=== PATIENT | female | born 1945 | race Two or more races ===

== ENCOUNTER 2024-08-20 23:14 | Inpatient (IN) | payer OTHER, SELFPAY ==
[2024-08-20 19:58] VITALS: BP 137/44
[2024-08-20 20:22] VITALS: BMI 31.8
[2024-08-20 20:24] VITALS: BP 144/50
[2024-08-20 20:32] LABS: % Basophils 0.2 % (0-2); % Eosinophils 6.5 % (0-6); % Immature Granulocytes 0.2 % (0-0.5); % Lymphocytes 30.5 % (20.5-51.1); % Monocytes 7.7 % (1.7-9.3); % Neutrophils 54.9 % (42.2-75.2); Absolute Eosinophils 0.4 10^3/uL (0-0.7); Absolute Lymphocytes 1.7 10^3/uL (1.2-3.4); Absolute Monocytes 0.4 10^3/uL (0.1-0.6); Absolute Neutrophils 3.1 10^3/uL (1.4-6.5); Hematocrit 25.2 % (37.0-47.0); Hemoglobin 8.1 g/dL (12.0-16.0); Mean Corp Hgb Conc. 32.1 g/dL (33.0-37.0); Mean Corpuscular Hgb 26.6 pg (27.0-31.0); Mean Corpuscular Volume 82.6 fL (81.0-99.0); Nucleated Red Blood Cells % 0 %; Platelet Count 198 10^3/uL (130-400); Red Blood Cell Count 3.05 10^6/uL (4.20-5.40); Red Cell Dist. Width 15.1 % (11.5-14.5); White Blood Cell Count 5.7 10^3/uL (4.8-10.8)
[2024-08-20 20:53] LABS: ALT (SGPT) 22 U/L (0-35); AST (SGOT) 26 U/L (14-36); Albumin 4.2 g/dl (3.5-5.0); Alkaline Phosphatase 65 U/L (38-126); Blood Urea Nitrogen 35 mg/dl (7-17); Calcium 9.6 mg/dl (8.4-10.2); Carbon Dioxide 21 mmol/L (22-30); Chloride 105 mmol/L (98-107); Estimated Creatinine Clearance 68 ml/min; Glucose 103 mg/dl (70-99); Potassium 4.6 mmol/L (3.5-5.1); Sodium 137 mmol/L (135-145); Total Bilirubin 0.5 mg/dl (0.2-1.3); Total Protein 6.4 g/dl (6.3-8.2); eGFR > 60.00
[2024-08-20 20:57] LABS: Troponin I < 0.012 ng/ml
[2024-08-20 21:00] VITALS: BP 121/39
[2024-08-20 21:17] LABS: Magnesium 2.1 mg/dl (1.6-2.3)
--- NOTE | 2024-08-20 21:19 | ED.GENMED ---
History of Present Illness
General
Chief Complaint: Chest Pain
Time Seen by Provider: 08/20/24 20:22
History of Present Illness
History of Present Illness:
79-year-old female with history of high blood pressure, dementia, and high cholesterol presenting to the emergency department for generally feeling unwell. Patient arrives with son who lives with her. He notes that patient had a bowel movement
earlier, and he noticed blood. She has been having some diarrhea so family ember gave her some Imodium today. She is not on any blood thinners. She was then eating dinner and then claimed that she was feeling well. Patient is a limited story and
given her dementia. She denies any associated chest pain or difficulty breathing. She describes it as a dizziness. Patient arrives with a low heart rate, and son notes that she has had this in the past, however is not sure of what degree. No
additional history obtained at this time.
Past History
Past History
ED Past Medical History: Cancer (Colon cancer), GERD, HTN, Hypercholesterolemia and Other (Osteoarthritis)
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
Social History
Tobacco: Non-smoker
Alcohol: None
Personal:
Living: with family (Resides with her son)
Employment: Retired
Family History
Family History: Other (Noncontributory)
Phy Exam
Physical Exam
Physical Exam:
General: Well-appearing, no clinical signs of dehydration, nontoxic and in no acute distress
HEENT: protecting airway
Neck: appears supple
CV: Bradycardic, regular rhythm, no evidence of cyanosis
Resp: No accessory muscle use, no increased work of breathing, lungs clear to auscultation bilaterally
Abd: Soft and non-distended, no tenderness to palpation
Extremities: No deformities, no swelling, no erythema
Neuro: alert, no focal neurologic deficit
: Hemoccult positive
Rectal: deferred
Psych: Normal affect
Skin: Intact
Scores
Heart Score for Chest Pain Patients
STEMI patient?: Not applicable
Course
Orders/Labs/Results
Orders:
Orders
08/20/24 19:55
Electrocardiogram (*1) Urgent
Reason for Study: Chest Pain
EKG- Treatment ONCE
08/20/24 20:26
Complete Blood Count/With Diff Urgent
Comprehensive Metabolic Panel Urgent
Iron Urgent
Comment: ADD ON
Magnesium Urgent
Comment: ADD ON
Troponin I Urgent
08/20/24 20:27
Electrocardiogram (*1) Urgent
Reason for Study: Chest Pain
EKG- Treatment ONCE
08/20/24 20:59
Add On- LAB Urgent
Tests Added?: magnesium level
08/20/24 21:20
Type And Crossmatch [Type+Screen] Urgent
08/20/24 21:54
Stool Culture Routine
POLLY Source: Feces/Stool
Specimen Description:
Stool For WBC Routine
POLLY Source: Feces/Stool
Specimen Description:
08/20/24 22:53
CARDIOLOGY CONSULT Routine
Consulting Provider: Gordo Soriano
Was physician already notified: Yes
Reason for consult: Mobitz type II
08/20/24 22:55
Consult Notification Routine
Specialty to Notify: Gastroenterology
GASTROINTESTINAL CONSULT Routine
Consulting Provider: Reji Zeng
Was physician already notified: No
Reason for consult: gi bleed hx colon ca r colectomy 2019
08/20/24 22:56
Admit/Transfer Patient As Directed
Co-Sign Provider:
Level of Care: Inpatient admission
Assign to:: Telemetry
Physician / Group: len diaz
Diagnosis: Mobitz type II, lower GI bleed, diarrhea
Reason for Telemetry: Arrhythmia
Date to Stop Telemetry: 08/23/24
Time to Stop Telemetry: 11:00
Reason for Hospitalization: Mobitz type II, lower GI bleed, diarrhea
Expected length of stay greater than two midnights?: Yes
ELOS- Estimated Length of Stay in days: 4
I certify the patient meets the requirements for IP care: Yes
08/20/24 22:57
Code Status As Directed
Resuscitation Status: Full Code
08/20/24 22:59
PRN Pain Medication Management As Directed
May give lesser potent ordered pain med per pt: Yes
preference::
Protocol:: Medication orders for pain may be administered in a
manner that supports deferring to patient preference
when the pt is:
- Requesting an ordered lesser potent pain medication.
Least to most potent pain medications are defined
as: acetaminophen < NSAID < tramadol < opioids
(morphine, oxycodone, hydromorphone).
- Requesting a lesser dose of the same medication IF
ORDERED.
- Requesting a less intrusive route of administration
if both routes are prescribed by the provider (PO <
IV).
08/20/24 23:00
Flush (0.9% Sodium Chloride) [Flush (Nss)] See Dose Instructions IV PER PROTOCOL
08/21/24 00:52
Acetaminophen [Tylenol] 650 mg PO Q4HPRN PRN
Lidocaine [Lidocaine 4% Patch] 1 patch TOPICAL DAILY PRN
Apply Lidocaine patch(s) to:: bilat knees
Trazodone [Desyrel] 50 mg PO HS PRN
08/21/24 00:52
Activity As Directed
Activity Level: With Assistance
Intake/ Output As Directed
Frequency: Per unit guidelines
Pneumatic Compression Sleeves As Directed
Type: Knee high
Vital Signs As Directed
Frequency: Per unit guidelines
Weight As Directed
Frequency: Daily
Ot Eval And Treat Routine
Pt Eval And Treat Routine
Activity Level: With Assistance
DX Deep Vein Thrombosis Video Routine
08/21/24 04:00
H&H Q8H
08/21/24 06:00
B12 [Vitamin B12] IN AM
Cardiovascular Evaluation IN AM
Complete Blood Count/With Diff IN AM
Comprehensive Metabolic Panel IN AM
Ferritin IN AM
Folate IN AM
TIBC [Total Iron Binding] IN AM
TSH Reflex To Free T4 IN AM
08/21/24 08:00
Lisinopril [Zestril] 20 mg PO DAILY
Mirabegron Extended Release [Myrbetriq Extended Release] 25 mg PO DAILY
Omeprazole Suspension [Prilosec Baby Oral Suspension] 20 mg PO DAILY
08/21/24 12:00
H&H Q8H
08/21/24 Dinner
Clear Liquid
08/21/24 20:00
H&H Q8H
08/21/24 22:00
Atorvastatin [Lipitor] 10 mg PO HS
08/22/24 04:00
H&H Q8H
08/22/24 06:00
Complete Blood Count/With Diff IN AM
Comprehensive Metabolic Panel IN AM
08/23/24 06:00
Complete Blood Count/With Diff IN AM
Comprehensive Metabolic Panel IN AM
08/23/24 11:00
DC Protocol for Telemetry ONCE
08/24/24 06:00
Complete Blood Count/With Diff IN AM
Comprehensive Metabolic Panel IN AM
Abnormal Lab Results
08/20/24
20:26
RBC 3.05 L 10^6/uL
(4.20-5.40)
Hgb 8.1 L g/dL
(12.0-16.0)
Hct 25.2 L %
(37.0-47.0)
MCH 26.6 L pg
(27.0-31.0)
MCHC 32.1 L g/dL
(33.0-37.0)
RDW 15.1 H %
(11.5-14.5)
MPV 11.0 H fL
(7.4-10.4)
Eosinophils % 6.5 H %
(0-6)
Carbon Dioxide 21 L mmol/L
(22-30)
BUN 35 H mg/dl
(7-17)
Glucose 103 H mg/dl
(70-99)
08/20/24 20:26
08/20/24 20:26
Vital Signs
Initial and Last Documented VS:
Initial Vital Signs
Temp Pulse Resp BP Pulse Ox
98.7 F 37 18 137/44 98
08/20/24 19:58 08/20/24 19:58 08/20/24 19:58 08/20/24 19:58 08/20/24 19:58
Last Documented Vital Signs
Temp Pulse Resp BP Pulse Ox
98.2 F 35 11 109/35 97
08/21/24 01:03 08/21/24 00:00 08/21/24 00:00 08/21/24 00:00 08/21/24 00:00
MDM/Problems Addressed
MDM/Problems Addressed:
79-year-old female with history of dementia, hypertension, hyperlipidemia presenting to the emergency department for dizziness and generally feeling unwell. Vital signs on arrival significant for profound bradycardia.
On exam, patient is resting comfortably, no acute distress. Blood pressure within normal limits. EKG obtained on arrival, which does show bradycardia, concern for heart block second-degree versus third-degree. Suspect that this could be
contributing to patient's symptoms. Plan for laboratory analysis, will discuss cardiology. Rectal exam also performed with report that patient was having blood per stool. Patient is Hemoccult positive. Will send type and screen in the setting of
potential GI bleed requiring transfusion.
21:30 - Patient's hemoglobin is low at 8.1, and blood pressure stable without immediate need for transfusion. Will consent in the event that hemoglobin is worsening. Did discuss with cardiology regarding patient's rhythm, expressed concern for
Mobitz 2, may need a pacemaker. On review of patient's medications, do not see any beta-blockers or calcium channel blockers. Patient is on lisinopril. Plan for admission for continued cardiac monitoring and cardiac consultation.
*EKG
Interpreted by ED Provider?: Yes
EKG Intrepretation Date: 08/20/24
EKG Intrepretation Time: 21:30
Interpretation: abnormal
Comparison EKG: changes noted (01/21/19)
Heart Rate: 33
Rate: bradycardiac
Rhythm: sinus
[place]: left axis deviation
Interval: second degree mobitz II
QRS Pattern: right bundle branch block
Ischemia: no ischemia
*Critical Care Note
Total Time (30-74mins, 75-104mins- exclusive of procedures): Not Applicable
ED Attending Note
-
Portions of this chart may have been created with voice recognition software.� Occasional wrong word or��sound alike� substitutions may have occurred due to the inherent limitations of voice recognition software.
Discharge Plan
Departure
Patient Disposition: Admit
Date of Disposition: 08/20/24
Time of Disposition: 21:35
Presentation/result/management discussed w/ accepting MD/DO: Hospitalist
Condition: Fair
Discharge Problem:
Bradycardia, GI bleed, AV block, Mobitz II
Interventions
Interventions:
*Risk Screen - Suicide Last Done: 08/20/24 19:58
*General Assessment Last Done: 08/20/24 19:58
*Neglect/Abuse Screening Last Done: 08/20/24 19:58
*ED COVID-19 Vaccine History Last Done: 08/20/24 20:22
*Nursing Disposition Last Done: 08/21/24 00:43
ED- Cardiac Assessment Last Done: 08/20/24 20:22
Discharge Date and Time
Discharge Date/Time: 08/21/24 00:44
--- NOTE | 2024-08-20 21:49 | HPS.HSE ---
Family Physician
-
Family Physician: Nieves Schilling
Chief Complaint
-
Diarrhea pudding-like with blood in toilet, then dizziness
History of Present Illness
79-year-old female complaining of feeling unwell. She and her son Garrison whom she lives with states she had watery pudding-like stool with some blood in the toilet x 2 episodes he then gave her 2 tablets of Imodium she then had additional episode of
watery pudding-like stool with blood so he gave an additional tablet of Imodium earlier today. She had heme positive blood in the ER with hemoglobin of 8.1. While eating dinner she was complaining she was not feeling well describing it as a
dizziness. Her history is limited due to history of dementia, however she does recall feeling dizzy earlier today currently while laying in bed she does not feel dizzy she denies headache, blurred vision, fever, chills, chest pain, palpitations,
cough, shortness of breath, abdominal pain, nausea, vomiting, urinary symptoms. She is oriented to first and last name, son and daughter but not her pcnaonxk-hg-kud or son-in-law at bedside she does not know the year or the president. On arrival
to the ER she was noted to have a low heart rate. EKG was evaluated by cardiology Dr. NICOLE Soriano appears to be Mobitz type II was recommended to monitor patient until he but does not need temporary pacemaker at current time.
Patient has past medical history of colon cancer with colon resection for cecal carcinoma, GERD, HTN, HLD, OA, dementia.
Medical History
Past Medical History
Past Medical History: Reports Other
Additional Past Medical History:
Dementia-She is oriented to first and last name, son and daughter but not her [id number]-rea or son-in-law at bedside she does not know the year or the president
colon cancer with colon resection for cecal carcinoma
GERD
Hernia
HTN
HLD
OA
Renal calculi
Urinary incontinence
Glaucoma
Past Surgical History: Reports Other
Additional Past Surgical History:
Appendectomy
Colon resection for cecal carcinoma
Cholecystectomy
Hysterectomy
Bladder surgery 1998
Transvaginal enterocele repair and open mesh sacrocolpopexy 2002
Bilateral laser eye treatment
Bilateral cataract extraction
Blepharoplasty
Cardiac cath
Hernia repairs times 09/09/2021
Social History
Tobacco: Non-smoker
Alcohol: None
Drug: None
Personal: Single
Living: With Family (Son Garrison)
Employment: Retired
Family History
Family History: Unable to Obtain
Allergies / Home Medications
Allergies reflects when Allergies were last updated in [employer].
Home Medications with original date entered in [employer]
Allergy/Medication List:
Allergies
Allergy/AdvReac Type Severity Reaction Status Date / Time
No Known Allergies Allergy Verified 07/23/22 18:52
Home Medications
lisinopril 20 mg tablet 20 mg PO DAILY 08/25/18
simvastatin 20 mg tablet 20 mg PO HS 08/25/18
Vitamin D3 1 cap PO DAILY 01/17/22
vitamin [id number] acid 1 tab PO DAILY 01/17/22
acetaminophen 325 mg tablet 650 mg (2 x 325 mg) PO Q4HPRN PRN mild pain #1 tab 01/24/22
ibuprofen 200 mg tablet 400 - 600 mg (2 - 3 x 200 mg) PO Q6HPRN PRN moderate pain #1 tab 01/24/22
diclofenac sodium 1 % topical gel 2 g topical HS PRN pain 08/20/24
lidocaine 4 % topical patch 1 patch topical DAILY PRN pain 08/20/24
mirabegron 25 mg tablet,extended release 24 hr (Myrbetriq) 25 mg PO DAILY 08/20/24
omeprazole 20 mg capsule,delayed release 20 mg PO DAILY 08/20/24
trazodone 50 mg tablet 50 mg PO HS PRN insomia 08/20/24
Review of Systems
-
History Source: Patient and Family (Son Garrison, daughter Brie, [id number] Sarah and son-in-law Samm at bedside)
A 12 point ROS was completed and negative except as noted: Yes
Constitutional: Denies Fever, Fatigue or Chills
EENT: Denies Sore Throat or Runny Nose
Respiratory: Denies Cough or Trouble Breathing
Cardiac: Denies Chest Pain, Diaphoresis, Palpitations or Syncope
Abdomen/GI: Reports Diarrhea (Pudding-like with some blood in toilet red in color); Denies Abdominal Pain, Nausea or Vomiting
: Denies Dysuria, Frequency, Flank Pain, Incontinence, Difficulty Voiding or Urgency
Musculoskeletal: Reports Edema (+2 bilateral lower extremity); Denies Joint Pain
Skin: Denies Itching or Rash
Neurological: Denies Dizzy, Headache or Weakness
Endocrine: Reports No Symptoms
Hematologic/Lymphatic: Reports No Symptoms
Psych: Reports Calm
Physical Exam
Vital Signs
Vital Signs
Temp Pulse Resp BP Pulse Ox
98.7 F 37 17 121/39 98
08/20/24 19:58 08/20/24 21:45 08/20/24 21:45 08/20/24 21:00 08/20/24 21:00
Physical Exam
General: Comfortable and Conversant; No Fever or Chills
HEENT: NormoCephalic, Moist mucous membranes, PERRLA, Fishtail Conjunctivae and No Ptosis
Respiratory: Clear; No Wheezes, Rales or Rhonchi
Cardiac: S1/S2, Bradycardia (Heart rate 35 bpm) and Peripheral Edema (+2 bilateral legs); No Murmur, Rub or Gallop
GI: Soft, Non Tender, Non Distended and Normal Bowel Sounds
Rectal: Deferred by Provider
Genito-urinary: Deferred by me
Musculoskeletal: No Clubbing, No Cyanosis, Edema, Left Lower Extremity (+2 bilateral lower leg) and Edema, Right Lower Extremity (+2 bilateral lower leg); No Edema, Left Upper Extremity or Edema, Right Upper Extremity
Skin: Warm and Dry; No Rash
Neuro: Awake, Alert, Oriented (To name, son Garrison, daughter Sarah but not valvbxwq-[id number] and son-in-law at bedside year or president), No Motor Deficits (While in bed), Cranial Nerves Intact and No Sensory Deficits; No Slurred Speech, Facial Droop or
Tremors
Psych: Calm
Laboratory Results
-
08/20/24 20:26
08/20/24 20:
Laboratory Results
Total Bilirubin 0.5 mg/dl (0.2-1.3) 08/20/24 20:
AST 26 U/L (14-36) 08/20/24 20:
ALT 22 U/L (0-35) 08/20/24 20:
Alkaline Phosphatase 65 U/L (38-126) 08/20/24 20:
Troponin I < 0.012 ng/ml 08/20/24 20:26
Impression/Plan
-
Impression/plan:
Admit to telemetry
#Lower GI bleed
#History of colon cancer with colon resection for cecal carcinoma�laparoscopic right colectomy 01/20/2019
Heme positive stool in ER
Hgb 8.1 <11.7 on 01/09/2022, MCV 82.6
Type and screen, blood consent obtained by ER
-Check iron panel, B12, folate
-Monitor H&H every 8 hours
-Consult GI
-Clear liquid diet
-Hold ibuprofen 400 to 600 mg every 6 hours as needed
#Diarrhea earlier today
-Patient was given dose of Imodium by family today 08/20/2024
-If diarrhea occurs would check stool for WBC,
#Sarabjititz type II
-Consult [facility] cardiology�Dr. NICOLE Soriano aware
-Monitor on telemetry
-Check TSH with free T4 reflex
#Dementia
-Fall precautions
#GERD
-IV Protonix [address] of 20 mg omeprazole daily
-
#HTN
ccnt lisinopril 20 mg daily
#HLD
-Hold simvastatin 20 mg daily
#Overactive bladder
Hold Myrbetriq 25 mg daily
#Insomnia
Hold trazodone 50 mg at bedtime as needed
#OA
-Hold diclofenac sodium 2 g topical at bedtime as needed pain
#Chronic ambulatory dysfunction uses walker at baseline
-Consult PT
Other PMH:
Renal calculi
Urinary incontinence
Glaucoma
DVT prophylaxis
SCDs given GI bleed
Full code per patient with son Garrison, daughter Sarah, sbeovakv-qe-hcy Brie and son-in-law Samm at bedside
--- NOTE | 2024-08-20 22:33 | W.PN.UPDATE ---
Addendum entered and electronically signed by Geo Coe MD 08/20/24 22:47:
No amanment
Original Note:
Update Note
Progress Note Update
I could not get any information from the patient has dementia
Information gathered by chart review and speaking with the ER staff.
This note serves as an addendum to the H&P by assistant golf course superintendent ZEE
Jovita GUANAKITO
HPI
79F HX Dementia, s/p colon resection for cecal carcinoma, GERD, HTN, HLD, OA seen at ER:
- vague c/o feeling unwell
- noted blood in her bowel movement earlier- confirmd by HoB POS stool at ER
- Current Hgb 8.1
- report diarrhea so a family member gave her Imodium today
- While eating dinner she was complaining she was not feeling well describing it as a dizziness.
- On arrival to the ER SB 30s to 40s
EKG was evaluated by cardiology Dr. NICOLE Soriano appears to be Mobitz type II was recommended to monitor patient , he does not indicate not need temporary pacemaker at current time.
Reviewed VS: BP 120/40 HR 30s - 40s
PE
Gen: nontoxic and in no acute distress
HEENT:anicteric
Neck: supple
Lungs: CTA
Cor: RRR , significant bradycardia
Abdomen: Soft and non-distended, no tenderness to palpatio
Rectal per ER: HoB POS
GRANTS ASSISTANT: AAO3
MS: no edema
Psych: Normal affect
Data
Hgb 8.1
CO2 21
BUN 35
Cr 0.7
eGFR > 60
BG > 60
TPNI < 0.012
EKG
MARKED SINUS BRADYCARDIA
RIGHT BUNDLE BRANCH BLOCK
ABNORMAL ECG
WHEN COMPARED WITH ECG OF 20-AUG-2024 20:10,
NO SIGNIFICANT CHANGE WAS FOUND
ASSESSMENT & PLAN
HoB POS stool
Acute LGIB associated
Associated with ACBLA ( Hgb 8.1 now. 11.7 on 01/09/2022, MCV 82.6)
HX colon resection for cecal carcinoma
- Type and screen, blood consent obtained by ER
- Check iron panel, B12, folate
- Monitor H&H every 8 hours
- Hold ibuprofen
- GI consult
Significant sinus bradycardia: HX SB but currently slower HR
Mobitz type II ?
- TLM monitor
- check TSH
- [facility] consult ( Dr. NICOLE Soriano aware)
Diarrhea earlier today
-Patient was given dose of Imodium by family today 08/20/2024
-If diarrhea occurs would check stool for WBC,
HX Dementia
-Fall precautions
GERD
-IV Protonix [address] of 20 mg omeprazole daily
-
Essential HTN
- lisinopril
HLD
- on simvastatin
Overactive bladder
- Myrbetriq 25 mg daily
Insomnia
- on trazodone 50 mg at bedtime as needed
DVT prophylaxis: SCDs
Full code
IP TLM
[2024-08-20 22:35] VITALS: BP 106/37
[2024-08-20 23:00] VITALS: BP 100/45
[2024-08-20 23:30] VITALS: BP 107/37
[2024-08-21] VITALS (22 sets, daily range): BP systolic 77–162; BP diastolic 35–149; BMI 30.8; BMI 30.9
[2024-08-21 00:08] LABS: Iron 42 ug/dl (37-170)
--- NOTE | 2024-08-21 02:40 | PTCARENOTE ---
Pt received from ED via stretcher. With assist of 3 pt transferred to bed. AAOx1. Very repetitive in speech. No recall. EYAK. Confused, forgetful. Mobitz Type II/BBB on CM rate 30's. ED pads remaine on pt. Pt asymptomatic. Denies pain or discomfort.
Denies dizziness or lightheadedness. Afebrile. POX RA 96%. Incontinent x 1 moderate bloody BM. Received CHG bath and attends changed. Purewick placed. Knee SCD's not placed d/t pt being high falls risk. Multiple attempts oob. Unable to reorient pt.
Nursing 1:[address] Rest of assessment as documented. Call rod remain within reach. Will continue to monitor.
[2024-08-21 04:55] LABS: % Basophils 0.2 % (0-2); % Immature Granulocytes 0.5 % (0-0.5); % Lymphocytes 35.6 % (20.5-51.1); % Monocytes 7.5 % (1.7-9.3); % Neutrophils 49.2 % (42.2-75.2); Absolute Eosinophils 0.3 10^3/uL (0-0.7); Absolute Lymphocytes 1.5 10^3/uL (1.2-3.4); Absolute Monocytes 0.3 10^3/uL (0.1-0.6); Absolute Neutrophils 2.1 10^3/uL (1.4-6.5); Hematocrit 21.3 % (37.0-47.0); Mean Corp Hgb Conc. 32.9 g/dL (33.0-37.0); Mean Corpuscular Hgb 26.9 pg (27.0-31.0); Mean Corpuscular Volume 81.9 fL (81.0-99.0); Nucleated Red Blood Cells % 0 %; Platelet Count 158 10^3/uL (130-400); Red Cell Dist. Width 15.2 % (11.5-14.5); White Blood Cell Count 4.3 10^3/uL (4.8-10.8)
[2024-08-21 05:07] LABS: ALT (SGPT) 18 U/L (0-35); AST (SGOT) 20 U/L (14-36); Alkaline Phosphatase 55 U/L (38-126); Blood Urea Nitrogen 29 mg/dl (7-17); Calcium 8.9 mg/dl (8.4-10.2); Carbon Dioxide 20 mmol/L (22-30); Chloride 111 mmol/L (98-107); Estimated Creatinine Clearance 79 ml/min; Glucose 97 mg/dl (70-99); HDL Cholesterol 45 mg/dl; LDL Cholesterol, Calculated 48 mg/dl; Potassium 4.1 mmol/L (3.5-5.1); Sodium 138 mmol/L (135-145); Total Bilirubin 0.3 mg/dl (0.2-1.3); Total Cholesterol 110 mg/dl (50-199); Total Protein 5.1 g/dl (6.3-8.2); Triglyceride 88 mg/dl (10-149); Very Low Density Lipoprotein 17 mg/dl (0-30); eGFR > 60.00
--- NOTE | 2024-08-21 05:19 | PTCARENOTE ---
Pt without UO for shift. Bladder scanned for 527mls. Pt then urinated 400mls using purewick.
[2024-08-21 05:21] LABS: Total Iron Binding Capacity 374 ug/dl (265-497)
[2024-08-21 05:40] LABS: Ferritin 7.4 ng/ml (11.1-264.0)
[2024-08-21 06:11] LABS: Folate > 20.0 ng/ml (2.76-20); Vitamin B12 > 1000 pg/ml (239-931)
[2024-08-21] MEDS: PROTONIX 40 MG PO (07:21)
[2024-08-21] MEDS: ZESTRIL 20 MG PO (07:21)
[2024-08-21] MEDS: MYRBETRIQ EXTENDED RELEASE 25 MG PO (07:21)
--- NOTE | 2024-08-21 07:34 | CON.CAR ---
Consultation
Consultation Request
Date/Time Consultation Requested: 05/20/2025 at 2100
Date/Time Consultation Performed: 05/20/2025 at 730
Requesting Provider: Dr. Coe
Performing Provider: Gordo Soriano MD
Reason for Consultation: 2:1 AV Block with RBBB
Medical History
-
Chief Complaint: Dizziness and malaise
History of Present Illness:
79-year-old woman with cognitive impairment, longstanding right bundle branch block, prior right colectomy for cecal carcinoma who is feeling unwell, had loose bowel movement with blood and because of malaise and dizziness presented to ER where
hemoglobin was 8.1 and EKG showed sinus bradycardia with 2-1 heart block and underlying right bundle branch block. Currently, she offers no complaints, is very pleasant and conversant, though has poor memory. Son and [id number] at bedside,
report that she functions well at home, enjoys life, etc. She had never had dizziness previously.
Past Medical History
Past Medical History: Arrhythmias (Right bundle branch block), GERD, HTN, Hypercholesterolemia, Psychiatric (Alzheimer's dementia) and Other (Glaucoma, osteoarthritis, renal calculi)
Past Surgical History: Appendectomy, Bowel Resection (Right colectomy for cecal carcinoma), Cholecystectomy, Gynecological (Hysterectomy, transvaginal enterocele repair with open mesh sacrocolpopexy) and Urological
Social History
Tobacco: Non-Smoker
Alcohol: None
Drug: None
Personal:
Living: With Family (Lives with son Garrison)
Employment: Retired
Family History
Family History: Reviewed & Not Pertinent
Allergies / Home Medications
Allergy/AdvReac Type Severity Reaction Status Date / Time
No Known Allergies Allergy Verified 07/23/22 18:52
�Medication �Instructions �Recorded �Confirmed �Type
lisinopril 20 mg tablet 20 mg PO DAILY 08/25/18 08/20/24 History
simvastatin 20 mg tablet 20 mg PO HS 08/25/18 08/20/24 History
Vitamin D3 1 cap PO DAILY 01/17/22 08/20/24 History
vitamin [id number] acid 1 tab PO DAILY 01/17/22 08/20/24 History
acetaminophen 325 mg tablet 650 mg (2 x 325 mg) PO Q4HPRN PRN 01/24/22 08/20/24 Rx
mild pain #1 tab
ibuprofen 200 mg tablet 400 - 600 mg (2 - 3 x 200 mg) PO 01/24/22 08/20/24 Rx
Q6HPRN PRN moderate pain #1 tab
diclofenac sodium 1 % topical gel 2 g topical HS PRN pain 08/20/24 08/20/24 History
lidocaine 4 % topical patch 1 patch topical DAILY PRN pain 08/20/24 08/20/24 History
mirabegron 25 mg tablet,extended 25 mg PO DAILY 08/20/24 08/20/24 History
release 24 hr (Myrbetriq)
omeprazole 20 mg capsule,delayed 20 mg PO DAILY 08/20/24 08/20/24 History
release
trazodone 50 mg tablet 50 mg PO HS PRN insomia 08/20/24 08/20/24 History
Review of Systems
-
Unable to obtain full review of systems at this time due to: Dementia
All other systems: Negative unless noted (Review of systems performed through son, patient has little if any memory, overall she feels well and never has complaints )
Constitutional: No Symptoms
EENT: No Symptoms
Respiratory: No Symptoms
Cardiac: No Symptoms
Abdomen/GI: No Symptoms
: No Symptoms
Musculoskeletal: No Symptoms
Skin: No Symptoms
Neurological: No Symptoms
Physical Exam
Vital Signs
Temp Pulse Resp BP Pulse Ox
36.7 C 34 17 130/48 96
08/21/24 07:04 08/21/24 07:21 08/21/24 04:15 08/21/24 07:21 08/21/24 04:15
Lab Results
08/21/24 03:50
Troponin I < 0.012 ng/ml 08/20/24 20:26
Physical Exam
General: No Apparent Distress (Pleasant, very poor memory)
HEENT: Normocephalic
Respiratory: Clear
Cardiac: Murmur (2/6 systolic murmur at apex)
GI: Soft and Normal Bowel Sounds
Musculoskeletal: Edema (Trace to 1+)
Skin: Warm and Dry
Neuro: Awake and Alert
Psych: Calm
Impression / Plan
-
Impression:
Probable Mobitz 2 heart block with underlying right bundle branch block and left axis deviation
GI bleed/hematochezia with blood loss anemia and iron deficiency anemia
History of cecal carcinoma status post right colectomy 2018
Longstanding right bundle branch block
Hypertension
Dementia
Hyperlipidemia
History of seizure disorder
Remote subdural hygroma
Glaucoma
GERD
Heart murmur
Cardiac catheterization 2004 at [facility]: EF 51%, 40% ostial LAD, otherwise no obstructive CAD
Lexiscan sestamibi study July 2018: Normal perfusion, EF greater than 75%
Plan:
She presents with 2-1 heart block and right bundle branch block. Statistically, this is most likely Mobitz 2, though as she has improved, we see that she has Mobitz 1 as well. Given her right bundle, it is likely that conduction through her bundle
of His is prolonged.
She still has substantial second-degree heart block and with symptoms of dizziness I am in favor of pacemaker implantation. Suspect that heart block is a reversible despite the physiologic stress of her bleeding.
We will check an echocardiogram. Suspect she has some mitral regurgitation.
Management is complicated by GI bleeding. Ideally we would like to know her underlying GI pathology before committing to pacemaker implant, but her bradycardia makes colonoscopy impractical. GI has ordered a CT scan of the abdomen and pelvis and
this may be of some help in risk stratifying.
Transfuse as per primary team.
At this point we will tentatively plan on pacemaker implantation tomorrow and reassess in the morning. Discussed with patient, electrophysiology, son and otcbwenf-af-jkn as well as nursing.
Data Reviewed
-
EKG: Tracing Personally Visualized and interpreted (Sinus rhythm/sinus arrhythmia with 2:1 AV block, and right bundle branch block)
Medical Tests (Nuc Med, Echo etc): Report Reviewed by me
Labs: Labs Reviewed by me (Hemoglobin 7.0, BUN and creatinine 29 and 0.6, troponin undetectable, LDL 48, TSH normal)
Old Records: Reviewed
[2024-08-21] MEDS: OMNIPAQUE 50 ML PO (10:34)
--- NOTE | 2024-08-21 10:45 | CON.GI ---
Addendum entered and electronically signed by Reji Zeng MD 08/21/24 12:34:
error consult done at noon
Original Note:
Consultation
-
Date/Time Consultation Requested: 08/20/2024, 11pm
Date/Time Consultation Performed: 08/21/2024, 1:30pm
Requesting Provider: Dr. Coe
Performing Provider: Dr. Zeng
Reason for Consultation: rectal bleeding
Medical History
Chief Complaint / HPI
Chief Complaint: dizzy, malaise
History of Present Illness:
79-year-old female past medical history of dementia, right bundle branch block, right hemicolectomy for cecal cancer presenting with loose bowel movement with blood and malaise and dizziness found to have a hemoglobin of 8.1 and EKG with sinus
bradycardia 2-1 block and underlying bundle branch block. Repeat Hb this am is 7 and she is getting 1UPRBC.
Reviewing records, it looks that she right hemicolectomy with Dr. Calix in January 2019. She had her index colonoscopy with Dr. Garza May 2018 with proximal right colon tumor.
On discussion with patient and son and hiiyznmc-[id number] at bedside, patient did have a repeat colonoscopy after this colon cancer around 5 years ago which was her last colonoscopy.
On she had an episode of diarrhea and they gave her Imodium. Thursday she had some brown stool mixed with blood. 2 episodes of this. These bowel movements are loose. No sick contacts, antibiotics, travel. No abdominal pain, nausea,
vomiting. She did lose 10 pounds which was intentional. On review of systems, she does states she was lightheaded but no shortness of breath. She had an episode of chest pain with eating and describes she had some dysphagia. This is the second
time this has happened to her but typically she does not have dysphagia.
Past Medical History
Past Medical History: Arrhythmias (right BBB), GERD, HTN, Hypercholesterolemia and Other (Alzheimer's, OA, renal calculi)
Past Surgical History: Appendectomy, Bowel Resection (right macario for cecal Ca), Cholecystectomy, Gynecological (Hysterectomy, transvaginal enterocele repair with open mesh sacrocolpopexy), Urological and Other (hernia repair, cataract/eye surgery)
Social History
Tobacco: Non-Smoker
Alcohol: None
Drug: None
Family History
Family History: Reviewed & Not Pertinent
Allergies / Home Medications
Allergy/AdvReac Type Severity Reaction Status Date / Time
No Known Allergies Allergy Verified 07/23/22 18:52
�Medication �Instructions �Recorded
lisinopril 20 mg tablet 20 mg PO DAILY 08/25/18
simvastatin 20 mg tablet 20 mg PO HS 08/25/18
Vitamin D3 1 cap PO DAILY 01/17/22
vitamin [id number] acid 1 tab PO DAILY 01/17/22
acetaminophen 325 mg tablet 650 mg (2 x 325 mg) PO Q4HPRN PRN 01/24/22
mild pain #1 tab
ibuprofen 200 mg tablet 400 - 600 mg (2 - 3 x 200 mg) PO 01/24/22
Q6HPRN PRN moderate pain #1 tab
diclofenac sodium 1 % topical gel 2 g topical HS PRN pain 08/20/24
lidocaine 4 % topical patch 1 patch topical DAILY PRN pain 08/20/24
mirabegron 25 mg tablet,extended 25 mg PO DAILY 08/20/24
release 24 hr (Myrbetriq)
omeprazole 20 mg capsule,delayed 20 mg PO DAILY 08/20/24
release
trazodone 50 mg tablet 50 mg PO HS PRN insomia 08/20/24
Review of Systems
-
Unable to obtain full review of systems at this time due to: Dementia
Vital Signs
Temp Pulse Resp BP Pulse Ox
97.5 F 34 15 80/61 96
08/21/24 10:36 08/21/24 10:36 08/21/24 10:36 08/21/24 10:36 08/21/24 04:15
Physical Exam
Exam
General: Well Developed
HEENT: Normocephalic
Respiratory: Clear
Cardiac: S1/S2
GI: Non Tender and Non Distended
Musculoskeletal: No Clubbing
Skin: Warm
Neuro: Awake
Psych: Calm
Results
WBC 4.3 10^3/uL (4.8-10.8) L 08/21/24 03:50
Hgb 7.0 g/dL (12.0-16.0) L 08/21/24 03:50
Hgb Cancelled 08/21/24 03:50
Hct 21.3 % (37.0-47.0) L 08/21/24 03:50
Hct Cancelled 08/21/24 03:50
MCV 81.9 fL (81.0-99.0) 08/21/24 03:50
Plt Count 158 10^3/uL (130-400) D 08/21/24 03:50
Absolute Neuts (auto) 2.1 10^3/uL (1.4-6.5) 08/21/24 03:50
Sodium 138 mmol/L (135-145) 08/21/24 03:50
Potassium 4.1 mmol/L (3.5-5.1) 08/21/24 03:50
Chloride 111 mmol/L (98-107) H 08/21/24 03:50
Carbon Dioxide 20 mmol/L (22-30) L 08/21/24 03:50
BUN 29 mg/dl (7-17) H 08/21/24 03:50
Creatinine 0.6 mg/dL (0.6-1.0) 08/21/24 03:50
Calcium 8.9 mg/dl (8.4-10.2) 08/21/24 03:50
Total Bilirubin 0.3 mg/dl (0.2-1.3) 08/21/24 03:50
AST 20 U/L (14-36) 08/21/24 03:50
ALT 18 U/L (0-35) 08/21/24 03:50
Alkaline Phosphatase 55 U/L (38-126) 08/21/24 03:50
Diagnostic Image Results:
Prior GI Procedures:
EGD:
Colonoscopy:
Assessment / Plan
-
79-year-old female presenting with dizziness, malaise, rectal bleeding with anemia requiring blood transfusion with past medical history of colon cancer found to have sinus bradycardia with 2-1 block and underlying bundle karlos block. Also 2
episodes of dysphagia. I discussed with highway research engineer. Likely best to pursue pacemaker first and then colonoscopy subsequently. However, we will get a CT scan prior to pacemaker as discussion with Dr. Soriano this would change the plan for the
pacemaker. She can have a regular diet today as the colonoscopy likely will be soonest done on Thursday I will need to discuss with EP tomorrow about timing.
I discussed with the bmbhgetu-dz-pse and son about colonoscopy with the rectal bleeding and possible endoscopy given 2 episodes of dysphagia. We discussed the risk, benefits, and alternatives to upper endoscopy. The risks include bleeding,
infection, perforation, missed lesion, and cardiopulmonary complications from anesthesia. We discussed the risks of colonoscopy including bleeding, infection, missed lesion, incomplete procedure, perforation and cardiopulmonary complications from
anesthesia. They are agreeable and they would consent for the patient. Perhaps a make sense to start with the colonoscopy and only pursue endoscopy if the colonoscopy findings were negative. I reviewed our plan as above with doing the CT first
followed by pacemaker followed by endoscopic procedures and they are agreeable.
-
-
Thank you for consultation and allowing me to participate in the patient's care. Please call the honey liquefier GI physician during the after hours with any questions or concerns.
--- NOTE | 2024-08-21 11:41 | PTCARENOTE ---
Pt seen by cardiology and plan is to have Pace maker placed before colonoscopy. Discussed with provider - Pt to be transferred to IVU. 1 unit of blood given per order and Oral contrast provided for upcoming CT scan. Pt completed contrast and 1
unit pRBC's transfused. Report given to RN on IVU; Informed family of move and Pt brought to CT and will be transported to IVU from there.
--- NOTE | 2024-08-21 12:28 | W.PN.HOSP.TC ---
Today's Communication/Plan
-
[address] follow GI recs
bradycardia for PPM tomorrow (NPO p MN) follow cards recs
d/w family
Assessment / Plan
Assessment / Plan
Assessment:
Acute lower GI bleed with associated acute blood loss anemia
Hx of colon cancer s/p resection
- Hb 7.0 today; 1 unit PRBC ordered
- monitor Hb serially
- anemia indices normal
- CT pending
- continue PPI daily
- GI following
Mobitz type 2 (along with Mobitz type 1) heart block with RBBB
Symptomatic bradycardia
- TSH normal
- PPM planned for Thursday; NPO p MN
- pacer pads in place
- transfer to IVU floor
Diarrhea earlier today
- Patient was given dose of Imodium by family today 08/20/2024
- If diarrhea occurs would check stool for WBC,
HX Dementia
- Fall precautions
GERD
- continue PPI
Essential HTN
- Lisinopril
HLD
- on simvastatin
Overactive bladder
- Myrbetriq 25 mg daily
Insomnia
- on trazodone 50 mg HS
DVT ppx: SCDs
Code: Full
Anticipated Discharge: > 48 hours
Subjective/Interval History
-
Date of Service: August 21, 2024
Hb 7.0 - 1 unit ordered
HR 30s - pacer planned
denies any complaints presently
for CT today
Objective Data
-
Labs:
Laboratory Results
08/21/24 08/21/24 08/21/24
03:50 03:50 03:50
WBC 4.3 L
Hgb Cancelled 7.0 L
Hct Cancelled 21.3 L
Plt Count 158 D
Sodium 138
Potassium 4.1
Chloride 111 H
Carbon Dioxide 20 L
BUN 29 H
Creatinine 0.6
Glucose 97
Calcium 8.9
Total Bilirubin 0.3
AST 20
ALT 18
Alkaline Phosphatase 55
Vital Signs:
Vital Signs
Temp Pulse Resp BP Pulse Ox
98.2 F 32 11 124/44 97
08/21/24 11:00 08/21/24 10:56 08/21/24 10:56 08/21/24 10:56 08/21/24 10:38
I&O
08/20/24 08/21/24 08/22/24
06:59 06:59 06:59
Intake Total 0 / 0
Output Total 400 / 400
Balance -400 / -400 0 / 0
Physical Exam
-
General: No Apparent Distress
HEENT: Normocephalic and Atraumatic
Respiratory: Negative Wheezes or Rales
Cardiac: Bradycardic
GI: Soft and Nontender
Genito-urinary: No Costovertebral Tender
Neuro: AO x 3
Hematologic / Lymphatic: No Lymphadenopathy
Psych: Calm
Data Reviewed
-
Total Time Spent with Patient (in minutes): 45
Labs: Labs Reviewed by me
--- NOTE | 2024-08-21 13:28 | PTCARENOTE ---
Received pt from IMU. AOx1, disoriented to time and place. No complaints of pain or discomfort. Pacer pads in place. HR 30-40s. Son at bedside. Call rod within reach.
--- NOTE | 2024-08-21 14:50 | PTCARENOTE ---
late note due to pt care.
Pt noted to have some blood in toilet while urinating. RN made Dr Kaplan and Dr Zeng aware. Repeat H&H sent to lab. Will continue to monitor.
[2024-08-21 14:57] LABS: Hematocrit 26.5 % (37.0-47.0); Hemoglobin 8.7 g/dL (12.0-16.0)
[2024-08-21] MEDS: LIPITOR 10 MG PO (21:17)
[2024-08-21] MEDS: TYLENOL 650 MG PO (21:28)
[2024-08-21] MEDS: DESYREL 50 MG PO (21:28)
[2024-08-21 21:58] LABS: Hemoglobin 8.5 g/dL (12.0-16.0)
--- NOTE | 2024-08-21 23:20 | PTCARENOTE ---
Pt incont. of large bloody stool on the way to the bathroom- Hematest unfortunately not obtained- but visibly red- will reattempt. Pt only oriented to self. needs frequent reorientation- sitter at the bedside- pt trying to leave room to 'go home'
PRN sleep medication provided. HR in the 30s 2nd degree type 2 HR block.
[2024-08-22] VITALS (22 sets, daily range): BP systolic 78–157; BP diastolic 38–108; BMI 31.1
[2024-08-22] MEDS: TYLENOL 650 MG PO (01:33)
[2024-08-22] MEDS: NSS (PRESERVATIVE FREE) 0.25 ML IV (05:01)
[2024-08-22] MEDS: ATIVAN 0.5 MG IV (05:01)
--- NOTE | 2024-08-22 05:07 | PTCARENOTE ---
Pt increasingly confused overnight- becoming more agitated with staff- multiple staff members on the floor tried to reorient her with multiple different methods of aggression reduction and pt still was being verbally abusive and kicking towards
staff. She pulled the call rod out of the wall and would not let anyone touch it 'stating it was hers, and she purchased it'. 1:[address] MICHAELLE florentino Aware- Order for Ativan given.
[2024-08-22 06:10] LABS: % Basophils 0.5 % (0-2); % Eosinophils 6.5 % (0-6); % Immature Granulocytes 0.3 % (0-0.5); % Lymphocytes 25.6 % (20.5-51.1); % Neutrophils 59.1 % (42.2-75.2); Absolute Eosinophils 0.3 10^3/uL (0-0.7); Absolute Monocytes 0.3 10^3/uL (0.1-0.6); Absolute Neutrophils 2.3 10^3/uL (1.4-6.5); Hematocrit 22.4 % (37.0-47.0); Hemoglobin 7.4 g/dL (12.0-16.0); Mean Corpuscular Hgb 26.8 pg (27.0-31.0); Mean Corpuscular Volume 81.2 fL (81.0-99.0); Nucleated Red Blood Cells % 0 %; Platelet Count 150 10^3/uL (130-400); Red Blood Cell Count 2.76 10^6/uL (4.20-5.40); White Blood Cell Count 3.9 10^3/uL (4.8-10.8)
[2024-08-22 06:36] LABS: ALT (SGPT) 20 U/L (0-35); AST (SGOT) 27 U/L (14-36); Albumin 2.9 g/dl (3.5-5.0); Alkaline Phosphatase 49 U/L (38-126); Blood Urea Nitrogen 23 mg/dl (7-17); Calcium 8.6 mg/dl (8.4-10.2); Carbon Dioxide 20 mmol/L (22-30); Chloride 112 mmol/L (98-107); Estimated Creatinine Clearance 79 ml/min; Glucose 103 mg/dl (70-99); Potassium 3.8 mmol/L (3.5-5.1); Sodium 138 mmol/L (135-145); Total Bilirubin 0.7 mg/dl (0.2-1.3); eGFR > 60.00
[2024-08-22] MEDS: PROTONIX 40 MG PO (09:49)
[2024-08-22] MEDS: MYRBETRIQ EXTENDED RELEASE 25 MG PO (09:49)
[2024-08-22] MEDS: ZESTRIL 20 MG PO (09:51)
--- NOTE | 2024-08-22 10:59 | W.PN.GI.CBS2 ---
Addendum entered and electronically signed by Reji Zeng MD 08/22/24 12:38:
I saw and examined the patient.
The POWER PLANT INSPECTOR or PA's note was reviewed and I agree with the note.
Comment: 79-year-old female presenting with dizziness, malaise, rectal bleeding with anemia requiring blood transfusion with past medical history of colon cancer found to have sinus bradycardia with 2-1 block and underlying bundle karlos block.
Also 2 episodes of dysphagia. Having ongoing rectal bleeding. I discussed with consulting group analyst 08/21. CT unrevealing for any metastatic process.
Plan pacemaker today, colo +/- EGD pending cards optimization.
Put order for clears tomorrow in case she can have procedures done on Thu.
D/w family at bedside.
Original Note:
Today's Communication / Plan
-
s/p Ct without etiology of bleeding
s/p transfusion
add IV iron
cont PPI
for pacer today
when cleared by cards family wishes to proceed with EGD/colonoscopy
ok for low residue diet later today then clears diet in AM
Dr. Zeng reviewed risk/benefit with family and still agreeable to proceed with colonoscopy and if neg EGD prior to discharge after pacer
Assessment / Plan
-
79-year-old female with hx dementia prior cecal CA with resection in 2019 presenting with dizziness, malaise, rectal bleeding with anemia requiring blood transfusion with past medical history of colon cancer found to have sinus bradycardia with 2-1
block and underlying bundle karlos block. Also 2 episodes of dysphagia. Plab for pacer 08/22 then GI testing. Last colonoscopy about 4 year ago 1 year after Cecal CA
08/21/24 CT A.p
Small to moderate hiatal hernia.
No acute inflammatory process within the abdomen or pelvis.
1 mm right renal nonobstructing calculus.
No obstruction or wall thickening. Mild colonic fecal burden.
Previous anterior abdominal hernia has been repaired.
Multilevel compression deformities have developed since prior examination, though with a chronic appearance.
rectal bleeding
-anemia with low ferritin
-dysphagia
-heart block
-hx bowel resection for cecal CA 5 years ago
other med problems:
-dementia
-GERD
-HTN
-hypercholesterolemia
-hysterectomy, transvaginal enterocele repair with mesh
--hernia repair
PLAN:
s/p Ct without etiology of bleeding
s/p transfusion
add IV iron
cont PPI
for pacer today
when cleared by cards family wishes to proceed with EGD/colonoscopy
ok for low residue diet later today then clears diet in AM
Dr. Zeng reviewed risk/benefit with family and still agreeable to proceed with colonoscopy and if neg EGD prior to discharge after pacer
Subjective
Subjective
Date of Service: August 22, 2024
08/21 blood tinged brown stool, NPO for pacer
Objective
Data Reviewed
Laboratory Data:
Laboratory Results
08/22/24 05:55
08/22/24 05:55
Laboratory Results
Magnesium 2.1 mg/dl (1.6-2.3) 08/20/24 20:26
Total Bilirubin 0.7 mg/dl (0.2-1.3) 08/22/24 05:55
AST 27 U/L (14-36) 08/22/24 05:55
ALT 20 U/L (0-35) 08/22/24 05:55
Alkaline Phosphatase 49 U/L (38-126) 08/22/24 05:55
Vital Signs and I&O:
Vital Signs
Temp Pulse Resp BP Pulse Ox
98.6 F 32 18 120/48 97
08/22/24 04:15 08/22/24 09:51 08/22/24 08:11 08/22/24 09:51 08/22/24 08:11
I&O
08/21/24 08/22/24 08/23/24
06:59 06:59 06:59
Intake Total 250 / 250
Output Total 400 / 400
Balance -400 / -400 250 / 250
Physical Exam
Physical Exam
HEENT: Anicteric and Moist mucous membranes
Cardiology: Other (bradicardia)
Pulmonary: Clear
GI: Soft, Non Distended and Non Tender
Extremities: No Edema
Neuro: Other (confused )
--- NOTE | 2024-08-22 11:16 | W.PN.HOSP.TC ---
Today's Communication/Plan
-
Pacemaker today
IV Iron
monitor Hb
EGD/Colon when cleared by Cardiology
Assessment / Plan
Assessment / Plan
Assessment:
Acute lower GI bleed with associated acute blood loss anemia
Hx of colon cancer s/p resection
- Hb 7.4 today; has received 1 unit total PRBC this admission
- monitor Hb serially
- anemia indices normal
- start IV Iron
- continue PPI daily
- CT negative, did not reveal etiology of bleeding
- GI following; for EGD/Colonoscopy after clearance from Cards
Mobitz type 2 (along with Mobitz type 1) heart block with RBBB
Symptomatic bradycardia
- TSH normal
- PPM planned for today
Diarrhea
- Patient was given dose of Imodium by family today 08/20/2024
- If diarrhea occurs would check stool studies
HX Dementia with agitated behaviors
- Fall precautions
- prn Risperdal (avoid Benzos will worsen agitation)
- constant redirection
GERD
- continue PPI
Essential HTN
- Lisinopril
HLD
- on simvastatin
Overactive bladder
- Myrbetriq 25 mg daily
Insomnia
- on trazodone 50 mg HS
DVT ppx: SCDs due to GI bleed
Code: Full
Anticipated Discharge: > 48 hours
Subjective/Interval History
-
Date of Service: August 22, 2024
some blood tinged stool yesterday but none since
Hb 7.4
received IV ativan x 1 for agitation (hx of dementia)
NPO this AM for pacer
Objective Data
-
Labs:
Laboratory Results
08/22/24 08/22/24 08/22/24
05:55 05:55 05:55
WBC 3.9 L
Hgb 7.4 L Cancelled
Hct 22.4 L Cancelled
Plt Count 150
Sodium 138
Potassium 3.8
Chloride 112 H
Carbon Dioxide 20 L
BUN 23 H
Creatinine 0.5 L
Glucose 103 H
Calcium 8.6
Total Bilirubin 0.7
AST 27
ALT 20
Alkaline Phosphatase 49
Vital Signs:
Vital Signs
Temp Pulse Resp BP Pulse Ox
98.6 F 32 18 120/48 97
08/22/24 04:15 08/22/24 09:51 08/22/24 08:11 08/22/24 09:51 08/22/24 08:11
I&O
08/21/24 08/22/24 08/23/24
06:59 06:59 06:59
Intake Total 250 / 250
Output Total 400 / 400
Balance -400 / -400 250 / 250
Physical Exam
-
General: No Apparent Distress
HEENT: Normocephalic and Atraumatic
Respiratory: Negative Wheezes
Cardiac: Bradycardic
GI: Soft and Nontender
Neuro: Awake and Alert
Psych: Confused and Apparent Dementia
Data Reviewed
-
Total Time Spent with Patient (in minutes): 47
Labs: Labs Reviewed by me
[2024-08-22] MEDS: FERRLECIT 110 MG IV (14:27)
--- NOTE | 2024-08-22 14:38 | PTCARENOTE ---
Report given to clinical laboratory aides teacher. %2 CHG wipes done
--- NOTE | 2024-08-22 16:31 | ITS.CL.PACE ---
Quality Facilitator - Pacemaker Implant
Pacemaker Implant
Procedure Report:
PACEMAKER IMPLANT REPORT
Referring Arborist Representative: Dr Gordo Soriano
Date of Procedure: August 22, 2024
Procedure:
Implantation of dual-chamber permanent pacemaker utilizing the left bundle branch for conduction system pacing
Indication/Diagnosis:
Non-reversible symptomatic bradycardia due to second atrioventricular block.
After informed consent was obtained, 'time out' was called and confirmed, the patient was prepped and draped in a sterile fashion. Lidocaine with epi was used for local anesthesia. Central venous access was obtained via subclavian venipuncture. An
incision was made along the left chest and a pre-pectoral pocket was formed. Using a Seldinger technique and peel-away sheaths, the pacing leads were placed under fluoroscopic guidance.
Fluoroscopy was used to determine likely anatomic site for left bundle branch pacing. The Keepytronic C315 sheath was used to deliver the Medtronic 3830 Selectsecure pacing lead with the helix exposed just exposed from the sheath tip during continuous
monitoring when pacemapping the septum during gentle clockwise rotation to obtain a paced QRS morphology of a W pattern in lead V1. Once the suspected optimal site was identified, lead deployment was performed with several rapid rotations as paced
QRS morphology was intermittently monitored until a paced QRS complex in lead V1 demonstrated development of an R wave (rSr).
Unipolar pacing impedance dropped by approximately 100.
Stable VEgm injury current is present throughout final lead position including at end of case, suggesting there was no perforation through the septum into the LV cavity.
Unipolar pacing impedance is 800 Ohms
Unipolar pacing threshold is stable at 1 V @ 0.4 ms.
Final conduction system paced QRS complex duration is 109 ms
LVAT is 86 ms and peak V5 -> peak V1 timing is 42 ms
Right atrial lead was placed at the RAA using a tined lead.
Once testing (see below) showed adequate and stable function, the leads were secured using the suture sleeves. The pocket was liberally irrigated with antibiotic solution. The leads were connected to the generator header and the leads and
generator were placed within the pocket. Fluoroscopy confirmed stable lead position. The pocket was closed in the typical fashion.
Fluoroscopy was used to guide lead placement.
IMPLANTS:
Medtronic [id number], SN: [id number], Left Pectoral
RA: Medtronic 4574-45, SN: [id number], RAA
Left Bundle: Medtronic 3830 , SN:[id number], Interventricular septum at LBB
DEVICE TESTING:
Sensing: RA 2.3 mV, RV 5 mV
Capture: RA 0.5 V@0.4ms, RV 0.75 V@0.4ms (bipolar)
Ohms: RA 437, RV 608 (bipolar)
FINAL PROGRAMMING
Rd Pacing: DDDR 60-130 ppm
COMPLICATIONS:
None
CONCLUSIONS:
Successful implant of dual chamber permanent pacemaker utilizing Left Bundle Branch conduction system capture for ventricular resynchronization pacing.
RECOMMENDATIONS:
1. Post-op care (tele, CXR, IV abx)
2. In-Office wound check in 5-7 days
Copy to: Dr. Gordo Soriano
--- NOTE | 2024-08-22 17:04 | PTCARENOTE ---
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 Left arm immobilizer in place. Left chest wall pacemaker site intact with a large pressure dressing. She denies pain. Oxygen at 4 liters NC POX 97%, VSS. Family at bedside
--- NOTE | 2024-08-22 17:45 | CM ---
spoke to pt in room, he prev yessicadep, lives with his son in a 2 story home with 2 steps to enter. he has a cane and a walker he uses at home. he denies any dc planning needs. plan is for dc to e when medically stable.
[2024-08-22] MEDS: ANCEF 5 IV (22:23)
[2024-08-22] MEDS: LIPITOR 10 MG PO (22:23)
[2024-08-23] VITALS (31 sets, daily range): BP systolic 83–148; BP diastolic 42–94; BMI 30.3
[2024-08-23 04:37] LABS: % Basophils 0.1 % (0-2); % Immature Granulocytes 0.4 % (0-0.5); % Lymphocytes 7.9 % (20.5-51.1); % Monocytes 5.7 % (1.7-9.3); % Neutrophils 85.9 % (42.2-75.2); Absolute Lymphocytes 0.6 10^3/uL (1.2-3.4); Absolute Monocytes 0.4 10^3/uL (0.1-0.6); Absolute Neutrophils 6.2 10^3/uL (1.4-6.5); Hematocrit 27.4 % (37.0-47.0); Hemoglobin 8.6 g/dL (12.0-16.0); Mean Corp Hgb Conc. 31.4 g/dL (33.0-37.0); Mean Corpuscular Hgb 26.5 pg (27.0-31.0); Mean Corpuscular Volume 84.3 fL (81.0-99.0); Mean Platelet Volume 11.1 fL (7.4-10.4); Nucleated Red Blood Cells % 0 %; Platelet Count 209 10^3/uL (130-400); Red Blood Cell Count 3.25 10^6/uL (4.20-5.40); Red Cell Dist. Width 15.2 % (11.5-14.5); White Blood Cell Count 7.3 10^3/uL (4.8-10.8)
[2024-08-23 04:47] LABS: INR 1.06; PT 14.1 Sec (11.4-14.6)
[2024-08-23 04:57] LABS: ALT (SGPT) 24 U/L (0-35); AST (SGOT) 29 U/L (14-36); Albumin 3.7 g/dl (3.5-5.0); Alkaline Phosphatase 69 U/L (38-126); Blood Urea Nitrogen 15 mg/dl (7-17); Calcium 9.2 mg/dl (8.4-10.2); Carbon Dioxide 22 mmol/L (22-30); Chloride 107 mmol/L (98-107); Estimated Creatinine Clearance 78 ml/min; Glucose 116 mg/dl (70-99); Magnesium 2.2 mg/dl (1.6-2.3); Potassium 4.5 mmol/L (3.5-5.1); Sodium 138 mmol/L (135-145); Total Bilirubin 0.7 mg/dl (0.2-1.3); Total Protein 5.9 g/dl (6.3-8.2); eGFR > 60.00
--- NOTE | 2024-08-23 05:39 | PTCARENOTE ---
Pt AV paced on monitor. Denies pain. Pleasantly confused, following directions appropriately. Continue on 1:1 observation for safety.
[2024-08-23] MEDS: ANCEF 5 IV (06:08)
[2024-08-23] MEDS: PROTONIX 40 MG PO (07:37)
[2024-08-23] MEDS: ZESTRIL 20 MG PO (07:37)
[2024-08-23] MEDS: MYRBETRIQ EXTENDED RELEASE 25 MG PO (07:37)
--- NOTE | 2024-08-23 08:14 | W.PN.CARDCBS ---
Addendum entered and electronically signed by Pierre Javier MD 08/23/24 11:55:
I saw and examined the patient.
The Elevator Constructor Supervisor's note was reviewed and I agree with the note.
Comment: Briefly, 79-year-old woman presenting with dizziness found to have second-degree AV block concerning for symptomatic bradycardia and is now status post permanent pacemaker
No cardiac complaints this morning
Pacemaker appears to be functioning appropriately based on my review of telemetry
Ongoing workup of anemia and suspected GI bleed
Stable cardiac status, we will sign off, please recall as needed
Outpatient follow-up arranged
Original Note:
Today's Communication / Plan
-
continue post PPM care
wound check appt arranged
follow hgb. GI work up ongoing
Impression / Plan
-
Impression:
Symptomatic bradycardia due to Mobitz 2 heart block with underlying right bundle branch block and left axis deviation
s/p Medtronic DC PPM 08/22/24
GI bleed/hematochezia with blood loss anemia and iron deficiency anemia
History of cecal carcinoma status post right colectomy 2018
Longstanding right bundle branch block
Hypertension
Dementia
Hyperlipidemia
History of seizure disorder
Remote subdural hygroma
Glaucoma
GERD
Heart murmur
Cardiac catheterization 2005 at [facility]: EF 51%, 40% ostial LAD, otherwise no obstructive CAD
Lexiscan sestamibi study July 2018: Normal perfusion, EF greater than 75%
ECHO 08/22/24: EF 76%, mild MR, mild to moderate TR, PAP 40 mmHg, mildly dilated RA, enlarged RV with normal RV function.
Plan:
-Patient presented with Mobitz type II heart block and right bundle branch block as well as anemia and GI bleeding
-Underwent Medtronic dual-chamber pacemaker placement 08/22/2024
-She reports feeling improved this morning in terms of energy level
-CXR without PTX
-tele overnight mostly asensed vpaced rhythm
-Echocardiogram with results as above, reviewed with patient 08/23
-BPs stable. continue OP lisinopril
-GI following. Hemoglobin today 8.6. Likely for EGD/colonoscopy in AM per GI
-iron repletion
-d/w nursing
Progress Note - Nozzle Worker
Subjective
Date of Service: August 23, 2024
Feeling well. Reports more energy
Objective
Labs:
08/23/24 03:29
08/23/24 03:29
Labs
Hgb 8.6 g/dL (12.0-16.0) L 08/23/24 03:29
Hct 27.4 % (37.0-47.0) L 08/23/24 03:29
Plt Count 209 10^3/uL (130-400) D 08/23/24 03:29
PT 14.1 Sec (11.4-14.6) 08/23/24 03:29
INR 1.06 08/23/24 03:29
Sodium 138 mmol/L (135-145) 08/23/24 03:29
Potassium 4.5 mmol/L (3.5-5.1) 08/23/24 03:29
BUN 15 mg/dl (7-17) 08/23/24 03:29
Creatinine 0.5 mg/dL (0.6-1.0) L 08/23/24 03:29
Glucose 116 mg/dl (70-99) H 08/23/24 03:29
Troponins
08/20/24
20:26
Troponin I < 0.012
Vital Signs and I&O:
Vital Signs
Temp Pulse Resp BP Pulse Ox
98.6 F 60 16 129/60 95
08/23/24 07:28 08/23/24 07:00 08/23/24 07:28 08/23/24 03:12 08/23/24 07:28
Vital Signs
Temp Pulse Resp BP Pulse Ox
98.6 F 60 16 129/60 95
08/23/24 07:28 08/23/24 07:00 08/23/24 07:28 08/23/24 03:12 08/23/24 07:28
Intake & Output
08/21/24 08/22/24 08/23/24 08/24/24
07:59 07:59 07:59 07:59
Intake Total 250 / 250 1060 / 1060
Output Total 400 / 400 600 / 600
Balance -400 / -400 250 / 250 460 / 460
Physical Exam
Physical Exam
GEN: No distress, awake, alert, oriented to self, place
HEENT: supple, anicteric, mmm, eomi
LUNGS: CTA B/L, no wheezes
CV: Reg, S1/S2, no murmur
ABD: soft, BS+, NT/ND
EXT: No cyanosis, clubbing. trace -1+ edema of B/L LE
NEURO: Gross non-focal
SKIN: Warm, pink, dry. No rash. L chest dressing c/d/i
--- NOTE | 2024-08-23 09:23 | W.PN.GI.CBS2 ---
Today's Communication / Plan
-
Golytle prep today
CLD NPO at [place] for EGD/colonoscopy tomorrow 08/24
Encourage son to stay bedside to encourage pt to complete colonic cleanse
Assessment / Plan
-
79-year-old female with hx dementia prior cecal CA with resection in 2019 presenting with dizziness, malaise, rectal bleeding with anemia requiring blood transfusion with past medical history of colon cancer found to have sinus bradycardia with 2-1
block and underlying bundle karlos block. Also 2 episodes of dysphagia. Plab for pacer 08/22 then GI testing. Last colonoscopy about 4 year ago 1 year after Cecal CA
08/21/24 CT A.p
Small to moderate hiatal hernia.
No acute inflammatory process within the abdomen or pelvis.
1 mm right renal nonobstructing calculus.
No obstruction or wall thickening. Mild colonic fecal burden.
Previous anterior abdominal hernia has been repaired.
Multilevel compression deformities have developed since prior examination, though with a chronic appearance.
Impression
- rectal bleeding
- iron deficiency anemia
-dysphagia
-heart block
-hx bowel resection for cecal CA 5 years ago
-dementia
-GERD
-HTN
-hypercholesterolemia
-hysterectomy, transvaginal enterocele repair with mesh
--hernia repair
Recommendations
- Golytle now
- CLD and NPO at [place] for EGD/colonoscopy tomorrow
- Monitor stool output
- C/w IV iron
- C/w PPI
RN and son updated bedside. All questions answered
Will follow with you
Subjective
Subjective
Date of Service: August 23, 2024
She denies abd pain. No further BM. Son bedside. Denies nausea/vomiting. Tolerating CLD.
Objective
Data Reviewed
Laboratory Data:
Laboratory Results
08/23/24 03:29
08/23/24 03:29
Laboratory Results
PT 14.1 Sec (11.4-14.6) 08/23/24 03:29
INR 1.06 08/23/24 03:29
Magnesium 2.2 mg/dl (1.6-2.3) 08/23/24 03:29
Total Bilirubin 0.7 mg/dl (0.2-1.3) 08/23/24 03:29
AST 29 U/L (14-36) 08/23/24 03:29
ALT 24 U/L (0-35) 08/23/24 03:29
Alkaline Phosphatase 69 U/L (38-126) 08/23/24 03:29
Vital Signs and I&O:
Vital Signs
Temp Pulse Resp BP Pulse Ox
98.6 F 60 16 129/60 95
08/23/24 07:28 08/23/24 07:00 08/23/24 07:28 08/23/24 03:12 08/23/24 07:28
I&O
08/22/24 08/23/24 08/24/24
06:59 06:59 06:59
Intake Total 250 / 250 1060 / 1060
Output Total 600 / 600
Balance 250 / 250 460 / 460
Physical Exam
Physical Exam
GEN: No acute distress, conversant, pleasant
HEENT: anicteric, extraocular movements intact, clear oropharynx without exudates
GI: soft, obese, well healed scar non-distended, not tender to palpation, normal active bowel sounds, no hepatosplenomegaly
EXT: warm, well perfused, trace edema bilaterally
NEURO: AAOx3, non-focal
[2024-08-23] MEDS: DULCOLAX 10 MG PO (09:24)
[2024-08-23] MEDS: NULYTELY SOLUTION 4 LITERS PO (10:38)
--- NOTE | 2024-08-23 10:48 | W.PN.HOSP.TC ---
Today's Communication/Plan
-
s/p PPM
start bowel prep for EGD/[place] tentatively tomorrow
d/w GI and Cards services
Assessment / Plan
Assessment / Plan
Assessment:
Acute lower GI bleed with associated acute blood loss anemia
Hx of colon cancer s/p resection
- Hb 8.6 today; has received 1 unit total PRBC this admission
- monitor Hb serially
- anemia indices normal
- continue IV Iron
- continue PPI daily
- CT negative, did not reveal etiology of bleeding
- GI following; start bowel prep to start today; tentative EGD/Colonoscopy 08/24
Mobitz type 2 (along with Mobitz type 1) heart block with RBBB
Symptomatic bradycardia
- TSH normal
- Echo: ECHO 08/22/24: EF 76%, mild MR, mild to moderate TR, PAP 40 mmHg, mildly dilated RA, enlarged RV with normal RV function.
- s/p Medtronic dual-chamber pacemaker placement 08/22/2024 with DCA/EP cardiology
Diarrhea
- Patient was given dose of Imodium by family today 08/20/2024
- consider stool studies if recurrent
HX Dementia with agitated behaviors
- Fall precautions
- prn Risperdal (avoid Benzos will worsen agitation)
- constant redirection
GERD
- continue PPI
Essential HTN
- Lisinopril
HLD
- on simvastatin
Overactive bladder
- Myrbetriq 25 mg daily
Insomnia
- on trazodone 50 mg HS
DVT ppx: SCDs due to GI bleed
Code: Full
Anticipated Discharge: > 48 hours
Subjective/Interval History
-
Date of Service: August 23, 2024
s/p PPM
pleasantly confused
Hb 8.6 this AM
Objective Data
-
Labs:
Laboratory Results
08/23/24
03:29
WBC 7.3
Hgb 8.6 L
Hct 27.4 L
Plt Count 209 D
PT 14.1
INR 1.06
Sodium 138
Potassium 4.5
Chloride 107
Carbon Dioxide 22
BUN 15
Creatinine 0.5 L
Glucose 116 H
Calcium 9.2
Total Bilirubin 0.7
AST 29
ALT 24
Alkaline Phosphatase 69
Vital Signs:
Vital Signs
Temp Pulse Resp BP Pulse Ox
98.6 F 60 16 129/60 95
08/23/24 07:28 08/23/24 07:00 08/23/24 07:28 08/23/24 03:12 08/23/24 07:28
I&O
08/22/24 08/23/24 08/24/24
06:59 06:59 06:59
Intake Total 250 / 250 1060 / 1060
Output Total 600 / 600
Balance 250 / 250 460 / 460
Physical Exam
-
General: No Apparent Distress
HEENT: Normocephalic and Atraumatic
Respiratory: Clear to Auscultation; Negative Wheezes or Rales
Cardiac: Regular Rhythm, S1/S2 and Other (pacer site C/D/I)
GI: Soft and Nontender
Genito-urinary: No Costovertebral Tender
Neuro: AO x 3
Hematologic / Lymphatic: No Lymphadenopathy
Psych: Calm
Data Reviewed
-
Total Time Spent with Patient (in minutes): 43
Labs: Labs Reviewed by me
--- NOTE | 2024-08-23 11:26 | PTCARENOTE ---
Patient using commode, slumped over, feeling lightheaded, looked pale. Patient assisted to bed by staff members, symptoms resolved once lying flat in bed. Dr. Kaplan notified,bedrest maintained. So far tolerating oral prep, voided yellow cloudy urine
on the commode, no stool yet
[2024-08-23] MEDS: NSS 500 IV (12:37)
[2024-08-23] MEDS: FERRLECIT 110 MG IV (13:40)
[2024-08-23 14:15] LABS: % Basophils 0.3 % (0-2); % Immature Granulocytes 0.4 % (0-0.5); % Monocytes 7.3 % (1.7-9.3); Absolute Eosinophils 0.1 10^3/uL (0-0.7); Absolute Lymphocytes 0.7 10^3/uL (1.2-3.4); Absolute Monocytes 0.5 10^3/uL (0.1-0.6); Absolute Neutrophils 5.4 10^3/uL (1.4-6.5); Hematocrit 25.7 % (37.0-47.0); Hemoglobin 8.2 g/dL (12.0-16.0); Mean Corp Hgb Conc. 31.9 g/dL (33.0-37.0); Mean Corpuscular Hgb 26.4 pg (27.0-31.0); Mean Corpuscular Volume 82.6 fL (81.0-99.0); Mean Platelet Volume 11.1 fL (7.4-10.4); Nucleated Red Blood Cells % 0 %; Platelet Count 212 10^3/uL (130-400); Red Blood Cell Count 3.11 10^6/uL (4.20-5.40); Red Cell Dist. Width 15.3 % (11.5-14.5); White Blood Cell Count 6.7 10^3/uL (4.8-10.8)
[2024-08-23] MEDS: NSS 1000 IV (14:40)
--- NOTE | 2024-08-23 17:01 | PTCARENOTE ---
Tolerating oral prep. Alert to self and knows she's in a hospital. Using bed brar large volume of watery maroon color stool. Care provided. BP 103/75. Immobilizer in place, patient will not remember precautions. Dressing left chest wall in place,
pressure dressing removed at 1400, small amount of old drainage, traced on bandage. Son at bedside and attentive to her needs
[2024-08-23] MEDS: RISPERDAL 0.25 MG PO ×2 (17:22→23:11)
[2024-08-23] MEDS: TYLENOL 650 MG PO (17:31)
--- NOTE | 2024-08-23 17:58 | PTCARENOTE ---
Patient more anxious, Risperdal and Tylenol given for pain at left shoulder
[2024-08-23 18:03] LABS: Hematocrit 21.3 % (37.0-47.0); Hemoglobin 6.8 g/dL (12.0-16.0)
--- NOTE | 2024-08-23 18:05 | PTCARENOTE ---
HGB 6.8 Dr Kaplan notified
[2024-08-23] MEDS: LIPITOR 10 MG PO (21:48)
[2024-08-23] MEDS: DESYREL 50 MG PO (23:12)
[2024-08-24] VITALS (8 sets, daily range): BP systolic 124–153; BP diastolic 56–101; PULSE 61; O2SAT 99
--- NOTE | 2024-08-24 02:40 | DOWNTIME ---
There was a [employer] Client Bank Vault Clerk Downtime on 08/24/2024 from 0100 to 08/24/2023 at 0235 . Downtime documentation of patient's care, including medication administrations, has been reconciled in the electronic record per guidelines. Refer to the
patient's paper chart under the miscellaneous tab to see printed paper medication records and downtime forms.
--- NOTE | 2024-08-24 04:32 | PTCARENOTE ---
Pt with increased agitation and confusion, uncooperative and restless this shift. Pt removed Aquacel dsg from her left chest wall incision, pulled heart monitor off and refused to put it back on. CHARGE PREPARATION TECHNICIAN made aware and no new order placed. Pt also
refused to finish her bowel prep for colonoscopy. This nurse called pt's son and informed him of this concerning behavior and asked permission for restraints for pt's safety. Son denied restraints and said that he will be back to the hospital to
stay with his mother. Pt continued to be very agitated with her son presents. This nurse had to stay with a patient 1:1 most of this shift.
1 URBC given, no s/s of adverse reaction noted during transfusion.
[2024-08-24] MEDS: PROTONIX 40 MG PO (07:40)
[2024-08-24] MEDS: TYLENOL 650 MG PO ×2 (07:40→21:32)
[2024-08-24] MEDS: MYRBETRIQ EXTENDED RELEASE 25 MG PO (07:40)
--- NOTE | 2024-08-24 08:30 | PTCARENOTE ---
Pt w/ 1:1 sitter for safety measures. Pt attempting to get OOB, pulling at wires, agitated even w/ son present in room. Pt removed L chest wall aquacel during nightshift. Educated pt not to touch pacemaker surgical site. Will continue to reinforce.
--- NOTE | 2024-08-24 08:54 | W.PN.HOSP.TC ---
Today's Communication/Plan
-
follow AM labs
EGD/[place] today
transfer to tele floor post-procedures
Assessment / Plan
Assessment / Plan
Assessment:
Acute lower GI bleed with associated acute blood loss anemia
Hx of colon cancer s/p resection
- Hb 9.5 today; has received 2 unit total PRBCs
- monitor Hb serially
- anemia indices normal
- continue IV Iron
- continue PPI daily
- CT negative, did not reveal etiology of bleeding
- GI following; tentative EGD/Colonoscopy today
Mobitz type 2 (along with Mobitz type 1) heart block with RBBB
Symptomatic bradycardia
- TSH normal
- Echo: ECHO 08/22/24: EF 76%, mild MR, mild to moderate TR, PAP 40 mmHg, mildly dilated RA, enlarged RV with normal RV function.
- s/p Medtronic dual-chamber pacemaker placement 08/22/2024 with DCA/EP cardiology
Diarrhea
- Patient was given dose of Imodium by family today 08/20/2024
- consider stool studies if recurrent
HX Dementia with agitated behaviors
- Fall precautions
- prn Risperdal (avoid Benzos will worsen agitation)
- constant redirection
GERD
- continue PPI
Essential HTN
- Lisinopril
HLD
- on simvastatin
Overactive bladder
- Myrbetriq 25 mg daily
Insomnia
- on trazodone 50 mg HS
DVT ppx: SCDs due to GI bleed
Code: Full
Anticipated Discharge: > 48 hours
Subjective/Interval History
-
Date of Service: August 24, 2024
s/p 1 unit PRBC yesterday
bowel prepped overnight; clear BMs per RN
awaiting AM labs
denies any complaints
Objective Data
-
Labs:
Laboratory Results
08/24/24
08:30
WBC Pending
Hgb Pending
Hct Pending
Plt Count Pending
Sodium Pending
Potassium Pending
Chloride Pending
Carbon Dioxide Pending
BUN Pending
Creatinine Pending
Glucose Pending
Calcium Pending
Total Bilirubin Pending
AST Pending
ALT Pending
Alkaline Phosphatase Pending
Vital Signs:
Vital Signs
Temp Pulse Resp BP Pulse Ox
98.9 F 60 18 141/101 96
08/24/24 07:58 08/24/24 07:53 08/24/24 07:58 08/24/24 07:53 08/24/24 07:58
I&O
08/23/24 08/24/24 08/25/24
06:59 06:59 06:59
Intake Total 1060 / 1060 3940 / 3940
Output Total 600 / 600 1000 / 1000
Balance 460 / 460 2940 / 2940
Physical Exam
-
General: No Apparent Distress
HEENT: Normocephalic and Atraumatic
Respiratory: Negative Wheezes
Cardiac: Regular Rhythm and S1/S2
GI: Soft and Nontender
Genito-urinary: No Costovertebral Tender
Musculoskeletal: No Edema
Neuro: Awake and Alert
Hematologic / Lymphatic: No Lymphadenopathy
Psych: Confused and Apparent Dementia
Data Reviewed
-
Total Time Spent with Patient (in minutes): 41
Labs: Labs Reviewed by me
[2024-08-24 08:55] LABS: % Basophils 0.4 % (0-2); % Eosinophils 4.4 % (0-6); % Immature Granulocytes 0.2 % (0-0.5); % Lymphocytes 22.2 % (20.5-51.1); % Monocytes 7.9 % (1.7-9.3); % Neutrophils 64.9 % (42.2-75.2); Absolute Eosinophils 0.2 10^3/uL (0-0.7); Absolute Lymphocytes 1.1 10^3/uL (1.2-3.4); Absolute Monocytes 0.4 10^3/uL (0.1-0.6); Absolute Neutrophils 3.2 10^3/uL (1.4-6.5); Hematocrit 29.1 % (37.0-47.0); Hemoglobin 9.5 g/dL (12.0-16.0); Mean Corp Hgb Conc. 32.6 g/dL (33.0-37.0); Mean Corpuscular Hgb 27.2 pg (27.0-31.0); Mean Corpuscular Volume 83.4 fL (81.0-99.0); Mean Platelet Volume 10.4 fL (7.4-10.4); Nucleated Red Blood Cells % 0 %; Platelet Count 220 10^3/uL (130-400); Red Blood Cell Count 3.49 10^6/uL (4.20-5.40); Red Cell Dist. Width 15.1 % (11.5-14.5)
--- NOTE | 2024-08-24 09:33 | W.PN.UPDATE ---
Update Note
Progress Note Update
inadequate prep, reviewed with GI and RN
clears; NPO p [place] for GI procedures tomorrow
[2024-08-24] MEDS: DULCOLAX 10 MG PO (09:54)
[2024-08-24] MEDS: CITROMA 300 ML PO (09:54)
--- NOTE | 2024-08-24 10:26 | W.PN.GI.CBS2 ---
Addendum entered and electronically signed by Emily Samano Do, MD 08/24/24 11:25:
I saw and examined the patient.
The FIELD MECHANIC/SITE LEAD's note was reviewed and I agree with the note.
Comment: Did not complete 20% of prep yesterday. Overnight agitated and got 1:1 sitter. Vitals stable. exam sleepy but arousable denies abd pain. Labs reviewed.
Recommendations
- Mag citrate 10oz x1 today
- 2L colytle until stools are clear
- CLD NPO at [place] for EGD/colon tomorrow
- Family updated bedside understands cannot do colonoscopy if prep is not completed and stools are clear
Will follow with you. Family, RN and hospitalist updated
Original Note:
Today's Communication / Plan
-
still with brown stool
cont clean out s/p mag citrate and dulcolax given now and to complete colyte prep later today
plan for EGD/colon 08/25 with further prep today
hbg improved to 9.5 today s/p 2 units PRBC's given repeat in AM
- CLD and NPO at [place] for Gi procedures
- Monitor stool output
- C/w IV iron
- C/w PPI
-reviewed with nursing staff -- per nursing family aware of plan
Assessment / Plan
-
79-year-old female with hx dementia prior cecal CA with resection in 2019 presenting with dizziness, malaise, rectal bleeding with anemia requiring blood transfusion with past medical history of colon cancer found to have sinus bradycardia with 2-1
block and underlying bundle karlos block. Also 2 episodes of dysphagia. s/p pacer 08/22 then GI testing. Last colonoscopy about 4 year ago 1 year after Cecal CA
08/21/24 CT A.p
Small to moderate hiatal hernia.
No acute inflammatory process within the abdomen or pelvis.
1 mm right renal nonobstructing calculus.
No obstruction or wall thickening. Mild colonic fecal burden.
Previous anterior abdominal hernia has been repaired.
Multilevel compression deformities have developed since prior examination, though with a chronic appearance.
Impression
- rectal bleeding
- iron deficiency anemia
-dysphagia
-heart block s/p pacer 08/22
-hx bowel resection for cecal CA 5 years ago
-dementia
-GERD
-HTN
-hypercholesterolemia
-hysterectomy, transvaginal enterocele repair with mesh
--hernia repair
Recommendations
still with brown stool
cont clean out s/p mag citrate and dulcolax given now and to complete colyte prep later today
plan for EGD/colon 08/25 with further prep today
hbg improved to 9.5 today s/p 2 units PRBC's given repeat in AM
- CLD and NPO at [place] for Gi procedures
- Monitor stool output
- C/w IV iron
- C/w PPI
-reviewed with nursing staff per nursing staff family aware of plan
Subjective
Subjective
Date of Service: August 24, 2024
not clear for colon today with brown stools, on clear diet then NPO for AM
Objective
Data Reviewed
Laboratory Data:
Laboratory Results
08/24/24 08:30
Laboratory Results
PT 14.1 Sec (11.4-14.6) 08/23/24 03:29
INR 1.06 08/23/24 03:29
Magnesium 2.2 mg/dl (1.6-2.3) 08/23/24 03:29
Total Bilirubin 0.7 mg/dl (0.2-1.3) 08/23/24 03:29
AST 29 U/L (14-36) 08/23/24 03:29
ALT 24 U/L (0-35) 08/23/24 03:29
Alkaline Phosphatase 69 U/L (38-126) 08/23/24 03:29
Vital Signs and I&O:
Vital Signs
Temp Pulse Resp BP Pulse Ox
98.9 F 60 18 141/101 96
08/24/24 07:58 08/24/24 07:53 08/24/24 07:58 08/24/24 07:53 08/24/24 09:00
I&O
08/23/24 08/24/24 08/25/24
06:59 06:59 06:59
Intake Total 1060 / 1060 3940 / 3940
Output Total 600 / 600 1000 / 1000
Balance 460 / 460 2940 / 2940
Physical Exam
Physical Exam
HEENT: Anicteric and Moist mucous membranes
Cardiology: Normal Sinus Rhythm (HR 60-70 with now pacer in place ) and Other (chest incision intact )
Pulmonary: Clear
GI: Soft and Non Tender
Extremities: No Edema
Neuro: Other (confused )
[2024-08-24 10:41] LABS: ALT (SGPT) 20 U/L (0-35); AST (SGOT) 28 U/L (14-36); Albumin 3.8 g/dl (3.5-5.0); Alkaline Phosphatase 72 U/L (38-126); Blood Urea Nitrogen 9 mg/dl (7-17); Calcium 9.3 mg/dl (8.4-10.2); Carbon Dioxide 23 mmol/L (22-30); Chloride 109 mmol/L (98-107); Estimated Creatinine Clearance 78 ml/min; Glucose 84 mg/dl (70-99); Potassium 3.8 mmol/L (3.5-5.1); Sodium 140 mmol/L (135-145); eGFR > 60.00
--- NOTE | 2024-08-24 10:50 | PTCARENOTE ---
Pt still having brown stool. Dr. Singleton and Dr. Kaplan made aware. Mag citrate and dulcolax ordered and administered.
--- NOTE | 2024-08-24 13:11 | PTCARENOTE ---
Pt transferred to [facility] room 321. Report given to Serena LANDIN.
[2024-08-24] MEDS: FERRLECIT 110 MG IV (13:47)
--- NOTE | 2024-08-24 14:29 | CM ---
CM met w/ patient at bedside.
1:1 also present.
Pt. with confused presentation. She states that she is currently in [place]. Son not present at bedside, he will be returning.
Reviewed initial assessment. Pt. resides w/ son in a private, 2 story home w/ 2 MAYEL[address]. At baseline, pt. is indep. w/ use of a SPC.
DC needs are uncertain at this time. Per PT, may need SNF rehab. Will need to address w/ son as patient is not clear to engage in discharge planning conversation. CM to follow.
[2024-08-24] MEDS: RISPERDAL 0.25 MG PO (19:39)
[2024-08-24] MEDS: LIPITOR 10 MG PO (19:39)
--- NOTE | 2024-08-24 19:50 | PTCARENOTE ---
Patient is very confused to situation/ place, agitated, pulling wires, trying to get OOB constantly. 1:1 present. Administered Risperdal as ordered.
[2024-08-24] MEDS: DESYREL 50 MG PO (20:52)
[2024-08-24] MEDS: ZYPREXA 5 MG IM (22:08)
[2024-08-25] VITALS (9 sets, daily range): BP systolic 14–177; BP diastolic 49–79; PULSE 70; O2SAT 98; BMI 29.8
[2024-08-25] MEDS: TYLENOL 650 MG PO (02:25)
[2024-08-25] MEDS: LIDOCAINE 4% PATCH 1 PATCH TOPICAL (02:26)
--- NOTE | 2024-08-25 06:13 | PTCARENOTE ---
Patient had 2 small watery BM overnight look like still light brown . Emily Lovelace Do, made aware via TT. No new orders at this time.
[2024-08-25] MEDS: MYRBETRIQ EXTENDED RELEASE PO (08:14)
[2024-08-25] MEDS: PROTONIX PO (08:14)
--- NOTE | 2024-08-25 10:19 | W.PN.HOSP.TC ---
Today's Communication/Plan
-
Monitor vitals
See plan
Continue with IV iron
Monitor hemoglobin
Possible discharge tomorrow
PT/OT
Discussed with family at bedside
Assessment / Plan
Assessment / Plan
Assessment:
Acute lower GI bleed with associated acute blood loss anemia
Hx of colon cancer s/p resection
- Hb 9.7 today; has received 2 unit total PRBCs
- monitor Hb serially
- anemia indices normal
- continue IV Iron
- continue PPI daily
- CT negative, did not reveal etiology of bleeding
- s/p EGD/Colonoscopy 08/25 with nonbleeding internal hemorrhoids, diverticulosis. EGD with grade B esophagitis. Continue with PPI twice daily. GI following
Mobitz type 2 (along with Mobitz type 1) heart block with RBBB
Symptomatic bradycardia
- TSH normal
- Echo: ECHO 08/22/24: EF 76%, mild MR, mild to moderate TR, PAP 40 mmHg, mildly dilated RA, enlarged RV with normal RV function.
- s/p Medtronic dual-chamber pacemaker placement 08/22/2024 with [facility] cardiology
Diarrhea
- Patient was given dose of Imodium by family 08/20/2024
- consider stool studies if recurrent
HX Dementia with agitated behaviors
- Fall precautions
- prn Risperdal (avoid Benzos will worsen agitation)
- constant redirection
GERD
- continue PPI
Essential HTN
- Lisinopril
HLD
- on simvastatin
Overactive bladder
- Myrbetriq 25 mg daily
Insomnia
- on trazodone 50 mg HS
DVT ppx: SCDs due to GI bleed
Code: Full
PT/OT recommending SNF. Discussed with son. He rather wants to take patient home.
General: No Apparent Distress
HEENT: Normocephalic and Atraumatic
Respiratory: Negative Wheezes
Cardiac: Regular Rhythm and S1/S2
GI: Soft and Nontender
Genito-urinary: No Costovertebral Tender
Musculoskeletal: No Edema
Neuro: Awake and Alert
Psych: Confused and Apparent Dementia
Anticipated Discharge: Within 24 hours
Subjective/Interval History
-
Date of Service: August 25, 2024
Denies pain
Objective Data
-
Labs:
Laboratory Results
08/25/24
06:00
WBC Pending
Hgb Pending
Hct Pending
Plt Count Pending
Sodium Pending
Potassium Pending
Chloride Pending
Carbon Dioxide Pending
BUN Pending
Creatinine Pending
Glucose Pending
Calcium Pending
Vital Signs:
Vital Signs
Temp Pulse Resp BP Pulse Ox
97.4 F 74 20 125/58 97
08/25/24 09:45 08/25/24 09:45 08/25/24 09:45 08/25/24 09:45 08/25/24 09:45
I&O
08/24/24 08/25/24 08/26/24
06:59 06:59 06:59
Intake Total 3940 / 3940 600 / 600
Output Total 1000 / 1000
Balance 2940 / 2940 600 / 600
[2024-08-25 10:50] LABS: Hematocrit 30.1 % (37.0-47.0); Hemoglobin 9.7 g/dL (12.0-16.0); Mean Corp Hgb Conc. 32.2 g/dL (33.0-37.0); Mean Corpuscular Hgb 27.8 pg (27.0-31.0); Mean Corpuscular Volume 86.2 fL (81.0-99.0); Mean Platelet Volume 10.2 fL (7.4-10.4); Platelet Count 210 10^3/uL (130-400); Red Blood Cell Count 3.49 10^6/uL (4.20-5.40); Red Cell Dist. Width 15.7 % (11.5-14.5); White Blood Cell Count 4.3 10^3/uL (4.8-10.8)
[2024-08-25 11:00] LABS: Blood Urea Nitrogen 7 mg/dl (7-17); Calcium 8.9 mg/dl (8.4-10.2); Carbon Dioxide 26 mmol/L (22-30); Chloride 107 mmol/L (98-107); Estimated Creatinine Clearance 77 ml/min; Glucose 97 mg/dl (70-99); Potassium 3.6 mmol/L (3.5-5.1); Sodium 140 mmol/L (135-145); eGFR > 60.00
[2024-08-25] MEDS: FERRLECIT 110 MG IV (13:48)
[2024-08-25] MEDS: RISPERDAL 0.25 MG PO (19:55)
[2024-08-25] MEDS: PROTONIX 40 MG PO (19:56)
[2024-08-25] MEDS: DESYREL 50 MG PO (21:06)
[2024-08-25] MEDS: MELATONIN 3 MG PO (21:06)
[2024-08-25] MEDS: LIPITOR 10 MG PO (21:06)
[2024-08-26 03:54] VITALS: BP 110/54
[2024-08-26 06:00] VITALS: BMI 29.6
[2024-08-26 07:19] VITALS: BP 141/69
[2024-08-26] MEDS: PROTONIX 40 MG PO (08:40)
[2024-08-26] MEDS: MYRBETRIQ EXTENDED RELEASE 25 MG PO (08:47)
[2024-08-26 09:41] LABS: Hematocrit 30.2 % (37.0-47.0); Hemoglobin 9.7 g/dL (12.0-16.0); Mean Corp Hgb Conc. 32.1 g/dL (33.0-37.0); Mean Corpuscular Hgb 27.6 pg (27.0-31.0); Mean Platelet Volume 9.8 fL (7.4-10.4); Platelet Count 220 10^3/uL (130-400); Red Blood Cell Count 3.51 10^6/uL (4.20-5.40); Red Cell Dist. Width 16.1 % (11.5-14.5); White Blood Cell Count 6.2 10^3/uL (4.8-10.8)
--- NOTE | 2024-08-26 10:00 | W.PN.HOSP.TC ---
Addendum entered and electronically signed by Tito Weir MD 08/26/24 10:09:
Time of discharge 37 minutes
Original Note:
Today's Communication/Plan
-
Monitor vital signs see plan
Possible discharge today pending labs
Discussed with son at bedside
Assessment / Plan
Assessment / Plan
Assessment:
Acute lower GI bleed with associated acute blood loss anemia
Hx of colon cancer s/p resection
- Hb 9.7 today; has received 2 unit total PRBCs
- monitor Hb serially
- anemia indices normal
- continue IV Iron
- continue PPI daily
- CT negative, did not reveal etiology of bleeding
- s/p EGD/Colonoscopy 08/25 with nonbleeding internal hemorrhoids, diverticulosis. EGD with grade B esophagitis. Continue with PPI twice daily. GI following
Mobitz type 2 (along with Mobitz type 1) heart block with RBBB
Symptomatic bradycardia
- TSH normal
- Echo: ECHO 08/22/24: EF 76%, mild MR, mild to moderate TR, PAP 40 mmHg, mildly dilated RA, enlarged RV with normal RV function.
- s/p Medtronic dual-chamber pacemaker placement 08/22/2024 with [facility]
Diarrhea
- Patient was given dose of Imodium by family 08/20/2024
- consider stool studies if recurrent
HX Dementia with agitated behaviors
Suspected some sundowning as well
- Fall precautions
- prn Risperdal (avoid Benzos will worsen agitation)
- constant redirection
GERD
- continue PPI
Essential HTN
- Lisinopril
HLD
- on simvastatin
Overactive bladder
- Myrbetriq 25 mg daily
Insomnia
- on trazodone 50 mg HS
DVT ppx: SCDs due to GI bleed
Code: Full
PT/OT recommending SNF. Discussed with son. He rather wants to take patient home.
General: No Apparent Distress
HEENT: Normocephalic and Atraumatic
Respiratory: Negative Wheezes
Cardiac: Regular Rhythm and S1/S2
GI: Soft and Nontender
Genito-urinary: No Costovertebral Tender
Musculoskeletal: No Edema
Neuro: Awake and Alert
Psych: Confused and Apparent Dementia
Anticipated Discharge: Today
Subjective/Interval History
-
Date of Service: August 26, 2024
Denies pain
Objective Data
-
Labs:
Laboratory Results
08/26/24
09:28
WBC 6.2
Hgb 9.7 L
Hct 30.2 L
Plt Count 220
Sodium Pending
Potassium Pending
Chloride Pending
Carbon Dioxide Pending
BUN Pending
Creatinine Pending
Glucose Pending
Calcium Pending
Vital Signs:
Vital Signs
Temp Pulse Resp BP Pulse Ox
98.6 F 75 17 141/69 94
08/26/24 07:19 08/26/24 07:19 08/26/24 07:19 08/26/24 07:19 08/26/24 07:19
I&O
08/25/24 08/26/24 08/27/24
06:59 06:59 06:59
Intake Total 600 / 600 2320 / 2320
Output Total 2 / 2
Balance 600 / 600 2318 / 2318
[2024-08-26 10:07] LABS: Blood Urea Nitrogen 16 mg/dl (7-17); Calcium 9.2 mg/dl (8.4-10.2); Carbon Dioxide 23 mmol/L (22-30); Chloride 106 mmol/L (98-107); Estimated Creatinine Clearance 77 ml/min; Glucose 129 mg/dl (70-99); Potassium 3.7 mmol/L (3.5-5.1); Sodium 139 mmol/L (135-145); eGFR > 60.00
--- NOTE | 2024-08-26 10:09 | W.DCSUMMARY ---
Discharge Summary
Discharge Data
Date of Admission: 08/20/24
Date of Discharge: 08/26/24
-
Pending Results: No
Hospital Course
79-year-old female with past medical history of dementia, GERD, hypertension, hyperlipidemia, overactive bladder, insomnia came to the hospital with symptomatic bradycardia with Mobitz type II block underwent cardiac pacemaker placement by
cardiology. Echocardiogram was also done which showed EF of 76%. On this hospitalization patient also had acute GI bleed for which she was seen by gastroenterology. She underwent EGD/colonoscopy which showed nonbleeding internal hemorrhoids,
diverticulosis. EGD was also consistent with grade B esophagitis. Patient required blood transfusion on this hospitalization. Prior to discharge her hemoglobin was stable. She was also evaluated by physical therapy who recommended SNF however
patient's son chose to rather take patient home. For her dementia with agitated behavior she was started on Risperdal for possible sundowning symptoms. Once her symptoms continue to improve, she was then discharged home with instructions to
follow-up with all her physicians outpatient.
Discharge Plan
-
Patient Disposition: Home with Home Care
Discharge Diagnosis/Procedures: Acute GI bleed
Mobitz type II block status post pacemaker
Ambulatory dysfunction
Dementia with agitated behaviors
Diet: As tolerated
Activity: With assistance and As tolerated
Driving Restrictions: As prior to admission
Bathing Restrictions: None
Blood Work: CBC next week with primary care provider
Stand Alone Forms: [facility] - Implanted Device
Referrals:
[facility] [Provider Group] - 08/29/24 2:00 pm (post device incision check appointment)
Emily Singleton MD [Active] - (4wk for iron deficiency anemia)
Nieves Schilling MD [Family Provider] - in less than 1 week
Prescriptions:
New
pantoprazole 40 mg Tablet,Delayed Release (Dr/Ec)
40 mg PO BID Qty: 60 0RF
risperidone 0.5 mg Tablet
0.25 mg PO Q6HPRN PRN (Reason: agitation) Qty: 15 0RF
Continued
lisinopril 20 MG tablet
20 mg PO DAILY
simvastatin 20 MG tablet
20 mg PO HS
Vitamin D3
1 cap PO DAILY
vitamin X70-ydbqm acid
1 tab PO DAILY
acetaminophen 325 mg tablet
650 mg PO Q4HPRN PRN (Reason: mild pain) Qty: 1 0RF
lidocaine 4 % Adhesive Patch,Medicated
1 patch TOPICAL DAILY PRN (Reason: pain)
Rx Instructions:
bilateral knees
trazodone 50 mg Tablet
50 mg PO HS PRN (Reason: insomia)
diclofenac sodium 1 % Gel
2 g TOPICAL HS PRN (Reason: pain)
Rx Instructions:
bilateral knees
mirabegron [Myrbetriq] 25 mg Tablet Extended Release 24 Hr
25 mg PO DAILY
Discontinued
ibuprofen 200 mg tablet
400 - 600 mg PO Q6HPRN PRN (Reason: moderate pain) Qty: 1 0RF
omeprazole 20 mg Capsule,Delayed Release(Dr/Ec)
20 mg PO DAILY
Discharge Orders:
Discharge Patient (As Directed); Ordered 08/26/24
Ordered By: Tito Weir
Care Plan Goals
Care Plan Goals:
Problem: Readiness for enhanced knowledge related to diagnosis and treatment plan
Goal: Understand your diagnosis and treatment plan needs, including medications if applicable.
Instructions: Know your diagnosis, underlying causes and treatment plan options, including medications if applicable. Consult with your health care team to learn about your diagnosis and treatment plan, including medications if applicable.
Discharge Date and Time
Discharge Date/Time: 08/26/24 15:51
Print Language: [id number]
[2024-08-26 10:39] VITALS: BP 123/57
[2024-08-26 14:53] VITALS: BP 115/66
--- NOTE | 2024-08-26 15:36 | CM ---
Met with patient's son and daughter in law at bedside. Patient's son, Garrison, stated that he feels that he has been able to handle the scope of her care and would like for her to come home. Patient calm and cooperative prior to discharge. Reviewed
IMM, it is signed and now on chart.
Plan: Case management will continue to follow and assist with discharge planning. Home.
== END 2024-08-26 15:51 | disposition home or self-care (01) | DRG 242 ==
LOC: 3 WEST ACU 23:14
PROVIDERS: Clinical Nurse Specialist Family Health; Emergency Medicine; Internal Medicine; Internal Medicine Cardiovascular Disease; Internal Medicine Gastroenterology; Nurse Practitioner Adult Health; ADMITTING PHYSICIAN Internal Medicine; ATTENDING PHYSICIAN Internal Medicine; CONSULT PHYSICIAN Internal Medicine Cardiovascular Disease; CONSULT PHYSICIAN Internal Medicine Gastroenterology; EMERGENCY PHYSICIAN Student in an Organized Health Care Education/Training Program; FAMILY PHYSICIAN Family Medicine
PROC: 30233N1 Transfusion of Nonautologous Red Blood Cells into Peripheral Vein, Percutaneous Approach (ICD-10-PCS; 2024-08-21)
PROC: 02H63JZ Insertion of Pacemaker Lead into Right Atrium, Percutaneous Approach (ICD-10-PCS; 2024-08-22)
PROC: 0JH606Z Insertion of Pacemaker, Dual Chamber into Chest Subcutaneous Tissue and Fascia, Open Approach (ICD-10-PCS; 2024-08-22)
PROC: 02HK3JZ Insertion of Pacemaker Lead into Right Ventricle, Percutaneous Approach (ICD-10-PCS; 2024-08-22)
PROC: 0DJD8ZZ Inspection of Lower Intestinal Tract, Via Natural or Artificial Opening Endoscopic (ICD-10-PCS; 2024-08-25)
PROC: 0DJ08ZZ Inspection of Upper Intestinal Tract, Via Natural or Artificial Opening Endoscopic (ICD-10-PCS; 2024-08-25)
DX: I44.1 Atrioventricular block, second degree (principal); K57.31 Diverticulosis of large intestine without perforation or abscess with bleeding; D62 Acute posthemorrhagic anemia; F02.811 Dementia in other diseases classified elsewhere, unspecified severity, with agitation; I10 Essential (primary) hypertension; E78.00 Pure hypercholesterolemia, unspecified; N32.81 Overactive bladder; R26.2 Difficulty in walking, not elsewhere classified; K64.8 Other hemorrhoids; I45.10 Unspecified right bundle-branch block; G47.00 Insomnia, unspecified; G30.9 Alzheimer's disease, unspecified; K44.9 Diaphragmatic hernia without obstruction or gangrene; R32 Unspecified urinary incontinence; N20.0 Calculus of kidney; M19.90 Unspecified osteoarthritis, unspecified site; K21.00 Gastro-esophageal reflux disease with esophagitis, without bleeding; Z98.0 Intestinal bypass and anastomosis status; Z90.710 Acquired absence of both cervix and uterus; Z90.49 Acquired absence of other specified parts of digestive tract; Z85.038 Personal history of other malignant neoplasm of large intestine; Z79.899 Other long term (current) drug therapy
CPT/HCPCS: 33208; 71045; 74177; 80048; 80053; 80061; 82607; 82728; 82746; 83540; 83550; 83735; 84443; 84484; 85014; 85018; 85025; 85027; 85610; 86850; 86900; 86901; 86920; 93005; 93306; 97116; 97163; 97167; 97530; 97535; 99284; C1769; C1785; C1887; C1892; C1898; J2358; J2916; P9016; Q9967

== ENCOUNTER 2025-02-13 06:23 | Day surgery (SDC) | payer OTHER, SELFPAY | END 2025-02-13 10:05 | disposition home or self-care (01) | LOC: GI 06:23 | PROVIDERS: ATTENDING PHYSICIAN Internal Medicine Gastroenterology | DX: Z12.11 Encounter for screening for malignant neoplasm of colon (principal); K64.8 Other hemorrhoids; K57.30 Diverticulosis of large intestine without perforation or abscess without bleeding; Z98.0 Intestinal bypass and anastomosis status | CPT/HCPCS: G0105 ==